=== PATIENT | male | born 1940 | race Caucasian/White ===

== ENCOUNTER 2023-09-13 10:49 | Outpatient (RCR) | payer OTHER, SELFPAY | END 2023-09-13 23:59 | disposition home or self-care (01) | LOC: RPT 10:49 | PROVIDERS: ATTENDING PHYSICIAN Physical Medicine & Rehabilitation; PRIMARYCARE PHYSICIAN Internal Medicine | DX: I69.354 Hemiplegia and hemiparesis following cerebral infarction affecting left non-dominant side (principal); R26.89 Other abnormalities of gait and mobility | CPT/HCPCS: 97014; 97110; 97112; 97116; 97140; 97530; 97535 ==

== ENCOUNTER 2023-10-11 10:18 | Outpatient (RCR) | payer OTHER, SELFPAY | END 2023-10-11 23:59 | disposition home or self-care (01) | LOC: RPT 10:18 | PROVIDERS: ATTENDING PHYSICIAN Physical Medicine & Rehabilitation; PRIMARYCARE PHYSICIAN Internal Medicine | DX: I69.354 Hemiplegia and hemiparesis following cerebral infarction affecting left non-dominant side (principal); Z74.09 Other reduced mobility; Z73.6 Limitation of activities due to disability; R26.89 Other abnormalities of gait and mobility | CPT/HCPCS: 97010; 97014; 97110; 97112; 97116; 97530; 97535 ==

== ENCOUNTER → 2024-02-07 09:34 | Outpatient (REF) | payer MEDICARE, SELFPAY ==
[2024-02-07 10:11] LABS: % Basophils 0.5 % (0-2); % Eosinophils 0.7 % (0-6); % Immature Granulocytes 0.2 % (0-0.5); % Lymphocytes 11.6 % (20.5-51.1); % Monocytes 8.9 % (1.7-9.3); % Neutrophils 78.1 % (42.2-75.2); Absolute Eosinophils 0.1 10^3/uL (0-0.7); Absolute Monocytes 0.8 10^3/uL (0.1-0.6); Absolute Neutrophils 6.9 10^3/uL (1.4-6.5); Hematocrit 41.6 % (39.0-52.0); Hemoglobin 13.3 g/dL (13.0-18.0); Mean Corpuscular Hgb 25.3 pg (27.0-31.0); Mean Corpuscular Volume 79.2 fL (80.0-94.0); Mean Platelet Volume 10.7 fL (7.4-10.4); Nucleated Red Blood Cells % 0 % (-); Platelet Count 155 10^3/uL (130-400); Red Blood Cell Count 5.25 10^6/uL (4.70-6.10); Red Cell Dist. Width 14.2 % (11.5-14.5); White Blood Cell Count 8.8 10^3/uL (4.8-10.8)
[2024-02-07 11:20] LABS: ALT (SGPT) 11 U/L (0-50); AST (SGOT) 20 U/L (17-59); Albumin 4.1 g/dl (3.5-5.0); Alkaline Phosphatase 76 U/L (38-126); Blood Urea Nitrogen 19 mg/dl (9-20); Calcium 9.5 mg/dl (8.4-10.2); Carbon Dioxide 30 mmol/L (22-30); Chloride 99 mmol/L (98-107); Glucose 77 mg/dl (70-99); HDL Cholesterol 42 mg/dl; LDL Cholesterol, Calculated 55 mg/dl; Potassium 4.6 mmol/L (3.5-5.1); Sodium 138 mmol/L (135-145); Total Bilirubin 1.2 mg/dl (0.2-1.3); Total Cholesterol 111 mg/dl (50-199); Total Protein 6.9 g/dl (6.3-8.2); Triglyceride 73 mg/dl (10-149); Very Low Density Lipoprotein 14 mg/dl (0-30); eGFR > 60.00
[2024-02-07 11:50] LABS: TSH Reflex To Free T4 0.75 uIU/ml (0.47-4.68)
[2024-02-07 12:51] LABS: Glycohemoglobin (HgbA1c) 5.8 % (4.0-5.6)
== END ==
LOC: REG 09:34
PROVIDERS: ATTENDING PHYSICIAN Internal Medicine
DX: I10 Essential (primary) hypertension (principal); E11.9 Type 2 diabetes mellitus without complications; I25.10 Atherosclerotic heart disease of native coronary artery without angina pectoris; E78.00 Pure hypercholesterolemia, unspecified; R68.89 Other general symptoms and signs
CPT/HCPCS: 36415; 80053; 80061; 83036; 84443; 85025

== ENCOUNTER 2024-02-09 02:39 | Inpatient (IN) | payer MEDICARE, SELFPAY ==
[2024-02-08 21:38] VITALS: BP 131/63; BMI 22.9
[2024-02-08 21:56] LABS: % Basophils 0.2 % (0-2); % Eosinophils 0.1 % (0-6); % Immature Granulocytes 0.4 % (0-0.5); % Lymphocytes 8.4 % (20.5-51.1); % Neutrophils 81.9 % (42.2-75.2); Absolute Immature Granulocytes 0.1 10^3/uL (0-0.05); Absolute Monocytes 1.1 10^3/uL (0.1-0.6); Absolute Neutrophils 9.9 10^3/uL (1.4-6.5); Hematocrit 39.1 % (39.0-52.0); Hemoglobin 13.2 g/dL (13.0-18.0); Mean Corp Hgb Conc. 33.8 g/dL (33.0-37.0); Mean Corpuscular Hgb 25.8 pg (27.0-31.0); Mean Corpuscular Volume 76.4 fL (80.0-94.0); Mean Platelet Volume 10.8 fL (7.4-10.4); Nucleated Red Blood Cells % 0 % (-); Platelet Count 167 10^3/uL (130-400); Red Blood Cell Count 5.12 10^6/uL (4.70-6.10); Red Cell Dist. Width 13.9 % (11.5-14.5); White Blood Cell Count 12.1 10^3/uL (4.8-10.8)
[2024-02-08 22:00] VITALS: BP 118/56
[2024-02-08 22:58] LABS: Lipase 37 U/L (23-300)
[2024-02-08 23:00] VITALS: BP 118/64
--- NOTE | 2024-02-08 23:43 | ED.GENMED ---
History of Present Illness
General
Chief Complaint: Abdominal Symptoms
Source: patient, ambulance crew and previous hospital records (Hospitalization 1 year ago for acute stroke)
Exam Limitations: none
Time Seen by Provider: 02/08/24 23:21
Nursing documentation reviewed up to this point in time: agreed with except (Patient called 911 due to shortness of breath and cough. He also notes intermittent left inguinal pain related to chronic inguinal hernia.)
History of Present Illness
History of Present Illness:
This is an 83-year-old gentleman who resides at home independently. 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 He has history of COPD chronically maintained on Stiolto and as needed albuterol.
Remote history of smoking, history of hypertension, hyperlipidemia, CAD.
During hospitalization 1 year ago for stroke he was found to have paroxysmal atrial fibrillation, started on Eliquis at that time.
He complains of several day history of cough that has worsened over the past few days especially today with moderate shortness of breath without relief from albuterol inhaler prompting call to 911.
Upon EMS arrival room air pulse ox reportedly 84%. Placed on nasal cannula oxygen and given DuoNeb nebulizer en route with improvement.
Patient does not utilize oxygen at home and reports no prior history of hypoxia.
He has had intermittent chills but notes somewhat chronic intermittent chills which he attributes to a 40 pound weight loss over the past year since suffering a stroke.
He also notes chronic left inguinal hernia that 'comes and goes.' This inguinal hernia is intermittently painful and was somewhat painful this afternoon/evening but pain has resolved since arrival to the ED.
He denies abdominal pain, no nausea or vomiting, no dysuria no urgency and or hematuria, no difficulty moving his bowels.
There has been no recent change in medications.
He has been compliant with medications including twice daily Eliquis.
He denies falls or injuries.
Past History
Past History
ED Past Medical History: Arrthythmia (Paroxysmal atrial fibrillation), COPD, CVA (January 2023), GERD, HTN, Hypercholesterolemia and PA
ED Past Surgical History: Cardiac and Other
Social History
Tobacco: Former smoker
Alcohol: None
Drug: None
Personal:
Living: alone
Employment: Retired
Family History
Family History: Other (Noncontributory)
Phy Exam
Physical Exam
Physical Exam:
GENERAL: 83-year-old gentleman appears his stated age, awake and alert, pleasant, appears in mild distress with mild resting tachypnea but able to speak in full sentences. Intermittent moist cough is noted. He is febrile, oral temperature 100.5 �F.
EYE: anicteric
NECK: Supple, nontender, no meningismus, no significant adenopathy.
ENT: posterior pharynx is clear, oral mucosa is moist. TM clear b/l, nares patent.
CARDIAC: Regular rhythm mildly tachycardic. No murmur.
LUNGS: Mild resting tachypnea with intermittent moist cough. Mildly decreased breath sounds throughout with scant rales right base.
ABDOMEN: Soft, nondistended, without focal tenderness, no r/g, normoactive BS. There is minimal fullness left inguinal region with left inguinal hernia defect without palpable mass, no palpable hernia and nontender. No testicular tenderness
bilaterally.
NEUROLOGICAL: Alert and oriented x3, chronic left hemiparesis. Left upper extremity with mild flexion deformity at wrist.
SKIN: Hot to touch and dry, normal color, skin intact. No rash.
MUSCULOSKELETAL: No C/C/E. peripheral pulses are full and equal b/l. No palpable tenderness.
PSYCH: Normal and appropriate interaction.
Course
Orders/Labs/Results
Orders:
Orders
02/08/24 21:43
IV Insert/Care/Rem.- Treatment PRN
02/08/24 21:47
Complete Blood Count/With Diff Urgent
02/08/24 21:48
EKG [Electrocardiogram (*1)] Urgent
Reason for Study: Tachycardia
EKG- Treatment ONCE
02/08/24 22:29
Lipase Urgent
02/08/24 23:33
Cardiac Monitoring- Treatment ONCE
O2 Therapy [RESP] Urgent
Titrate/Wean O2 to maintain O2 sat greater than (%): 93
Special Instructions: TO MAINTAIN CONTINUOUS O2 SATS > OR = 93%
Pulse Ox/cont/shift [RESP] Urgent
Quantity: 1
Special Instructions: CONTINUOUS
02/08/24 23:39
Comprehensive Metabolic Panel Urgent
Lactic Acid Q4H
Comment: ON ICE, CANCEL 2ND ORDER IF FIRST LACTIC ACID LEVEL <2
Blood Culture Q30M
SILVA Source: Blood/Venous
Specimen Description:
Comment: FROM 2 SEPARATE SITES
02/08/24 23:40
COVID-19 Antigen Urgent
Source: Nasal Swab
Acetaminophen [Tylenol] 1,000 mg PO NOW STA
02/08/24 23:41
Urinalysis Reflex To Culture Urgent
02/08/24 23:42
0.9% Sodium Chloride 1000 ml [Nss] 2,000 ml IV BOLUS
02/09/24 00:00
CR Chest - 2 Views Urgent
Reason For Exam: COUGH, FEVER, HYPOXIA
02/09/24 00:15
Blood Culture Q30M
SILVA Source: Blood/Venous
Specimen Description:
Comment: FROM 2 SEPARATE SITES
02/09/24 00:29
CefTRIAXone [Rocephin] 1,000 mg IV NOW STA
Doxycycline [Vibramycin] 100 mg PO NOW STA
02/09/24 03:45
Lactic Acid Q4H
Comment: ON ICE, CANCEL 2ND ORDER IF FIRST LACTIC ACID LEVEL <2
Abnormal Lab Results
02/08/24 02/08/24
21:47 23:39
WBC 12.1 H 10^3/uL
(4.8-10.8)
MCV 76.4 L fL
(80.0-94.0)
MCH 25.8 L pg
(27.0-31.0)
MPV 10.8 H fL
(7.4-10.4)
Abs Immat Gran (auto) 0.1 H 10^3/uL
(0-0.05)
Absolute Neuts (auto) 9.9 H 10^3/uL
(1.4-6.5)
Absolute Lymphs (auto) 1.0 L 10^3/uL
(1.2-3.4)
Absolute Monos (auto) 1.1 H 10^3/uL
(0.1-0.6)
Neutrophils % 81.9 H %
(42.2-75.2)
Lymphocytes % 8.4 L %
(20.5-51.1)
Sodium 133 L mmol/L
(135-145)
Creatinine 0.6 L mg/dL
(0.7-1.3)
Glucose 135 H mg/dl
(70-99)
02/08/24 21:47
02/08/24 23:39
Vital Signs
Temp: 100.5 F
Initial and Last Documented VS:
Initial Vital Signs
Temp Pulse Resp BP Pulse Ox
99.4 F 115 32 131/63 91
02/08/24 21:38 02/08/24 21:38 02/08/24 21:38 02/08/24 21:38 02/08/24 21:38
Last Documented Vital Signs
Temp Pulse Resp BP Pulse Ox
100.5 F H 106 20 107/61 95
02/08/24 23:55 02/09/24 00:00 02/09/24 00:00 02/09/24 00:00 02/09/24 00:22
MDM/Problems Addressed
Differential Diagnosis Includes:
Several day history of cough, progressive shortness of breath and found to be febrile. Concern for pneumonia, COVID-19, exacerbation of COPD.
He has chronic left inguinal hernia deficit with intermittent pain/palpable hernia that spontaneously reduces and is currently reduced and nontender. I suspect hernia discomfort exacerbation more acutely due to current cough/URI.
With acute fever/cough, CHF is much less likely. No prior history of CHF/cardiomyopathy.
power checker and EKG shows sinus tachycardia, likely in response to acute febrile illness. There is no evidence of atrial fibrillation.
He has been compliant with twice daily Eliquis thus thromboembolism is unlikely.
Will give Tylenol for fever. Will check lactic acid, blood cultures, chest x-ray.
Will initiate IV fluids.
Due to acute hypoxia requiring supplemental oxygen, patient will require acute hospitalization.
Chronic conditions affecting care: HTN, Arrhythmia, COPD and Other (Chronic left inguinal hernia)
Acute Exacerbation and/or Progression of Chronic Illness: COPD
*Radiology
Radiology exam reviewed: preliminary read by ED provider (Chest x-ray shows chronic right lower lobe atelectasis/volume loss with a new right lower lobe infiltrate compared to previous film 2020)
*Pulse Oximetry
Patient hypoxic: yes
*EKG
Interpreted by ED Provider?: Yes
Interpretation: abnormal
Comparison EKG: changes noted (Sinus tachycardia has replaced atrial fibrillation noted on previous EKG January 2023)
Rate: tachycardiac
Rhythm: sinus
[place]: left axis deviation
QRS Pattern: right bundle branch block
Ischemia: non-specific ST changes
*School Psych[employer]rist Interpretation
Rate: tachycardiac
Interpretation: abnormal
Rhythm: sinus
*Critical Care Note
Total Time (30-74mins, 75-104mins- exclusive of procedures): Not Applicable
Update Note
Update Note:
02/09/2024 0033 AM
Chest x-ray shows chronic appearing atelectasis right lower lobe I suspect from previous lung surgery but notes a new right lower lobe infiltrate.
Will initiate Rocephin, doxycycline for coverage of community-acquired pneumonia.
Will continue supplemental oxygen, nebulizer treatments.
Will admit to hospitalist service.
ED Attending Note
-
Portions of this chart may have been created with voice recognition software.� Occasional wrong word or��sound alike� substitutions may have occurred due to the inherent limitations of voice recognition software.
Discharge Plan
Departure
Patient Disposition: Admit
Date of Disposition: 02/09/24
Time of Disposition: 00:32
Admit to doctor: Mckay
Presentation/result/management discussed w/ accepting MD/DO: Hospitalist
Condition: Fair
Discharge Problem:
Community acquired pneumonia, Acute hypoxemic respiratory failure, Fever rule out sepsis, Reducible left inguinal hernia
Prescriptions:
No Action
rosuvastatin [Crestor] 40 mg Tablet
40 mg PO DAILY
Rx Instructions:
pt states he takes at bedtime
omeprazole 40 mg Capsule,Delayed Release(Dr/Ec)
40 mg PO DAILY
Patient Comments:
pt states he takes in morning
Rx Instructions:
pt states he takes in morning
Stiolto Respimat 2.5-2.5 mcg/actuation Mist
2 puff INHALATION DAILY
Eliquis 5 mg Tablet
5 mg PO BID Qty: 0 0RF
lidocaine 4 % Adhesive Patch,Medicated
1 patch topical DAILY Qty: 30 0RF
polyethylene glycol 3350 [HealthyLax] 17 gram Powder In Packet
17 g PO DAILYPRN PRN (Reason: constipation) Qty: 30 0RF
metoprolol succinate 50 mg Tablet Extended Release 24 Hr
50 mg PO DAILY Qty: 30 0RF
prochlorperazine maleate 5 mg Tablet
5 mg PO Q6HPRN PRN (Reason: nausea) Qty: 30 0RF
cyanocobalamin (vitamin B-12) 1,000 mcg Tablet
1,000 mcg PO DAILY Qty: 30 0RF
acetaminophen [Pain Relief ES (acetaminophen)] 500 mg Tablet
1,000 mg PO Q8HPRN PRN (Reason: mild pain) Qty: 100 0RF
trazodone 100 mg Tablet
100 mg PO HS Qty: 30 0RF
Saline Nasal 0.65 % Aerosol,[place]
1 spray intranasal QID Qty: 88 0RF
escitalopram oxalate 5 mg Tablet
5 mg PO DAILY Qty: 30 0RF
multivitamin with folic acid [Tab-A-Zach] 400 mcg Tablet
1 tab PO DAILY Qty: 30 0RF
Referrals:
UNKNOWN - PT DOES,NOT KNOW [Family Provider] -
Interventions
Interventions:
*Risk Screen - Suicide Last Done: 02/08/24 21:38
*General Assessment Last Done: 02/08/24 21:38
*Neglect/Abuse Screening Last Done: 02/08/24 21:38
ED- Fall Risk Assessment Last Done: 02/09/24 00:25
*ED COVID-19 Vaccine History Last Done: 02/08/24 21:38
ZE-Hyjpni-Xakmbqiyff Assessment Last Done: 02/09/24 00:22
Discharge Date and Time
Print Language: SETSWANA
[2024-02-08] MEDS: NSS 2000 IV (23:54)
[2024-02-08] MEDS: TYLENOL 1000 MG PO (23:54)
[2024-02-09] VITALS (11 sets, daily range): BP systolic 106–166; BP diastolic 49–96; PULSE 93; O2SAT 99; BMI 22.8
[2024-02-09 00:09] LABS: Lactic Acid 1.1 mmol/L (0.7-2.0)
[2024-02-09 00:20] LABS: ALT (SGPT) 14 U/L (0-50); AST (SGOT) 28 U/L (17-59); Albumin 3.7 g/dl (3.5-5.0); Alkaline Phosphatase 75 U/L (38-126); Blood Urea Nitrogen 20 mg/dl (9-20); Carbon Dioxide 25 mmol/L (22-30); Chloride 99 mmol/L (98-107); Estimated Creatinine Clearance 99 ml/min; Glucose 135 mg/dl (70-99); Potassium 4.1 mmol/L (3.5-5.1); Sodium 133 mmol/L (135-145); Total Bilirubin 0.9 mg/dl (0.2-1.3); Total Protein 6.5 g/dl (6.3-8.2); eGFR > 60.00
--- NOTE | 2024-02-09 00:54 | HPS.HSE ---
Family Physician
-
Family Physician: NOT KNOW UNKNOWN - PT DOES
Chief Complaint
-
cough and shortness of breath
History of Present Illness
Mr. Rodo Salazar is a 83 yo man with hx CVA 1 year ago with residual left hemiparesis, COPD, prior tobacco us, HTN, HLD, CAD, paroxysmal afib on Eliquis presents to the ER with cough and worsening shortness of breath.
Patient states symptoms started 2-3 days ago. He had an increase in cough, cough is non-productive. No fevers/chills. No chest pain. + fatigue. No nausea/vomiting/diarrhea. He used albuterol once today with mild relief in symptoms. Currently
on 2L O2 in ER, he is not on oxygen at home.
Patient also states he has felt his hernia more with coughing (known inguinal hernia). Not painful. Currently he does not feel it.
Medical History
Past Medical History
Past Medical History: Reports Other
Additional Past Medical History:
Essential Hypertension
Dyslipidemia
Paroxysmal Atrial Fibrillation
CVA with residual left hemiparesis
COPD
coronary artery disease
Social history: Lives independently at home, denies smoking or alcohol use.
Family history: Reviewed and noncontributory.
Past Surgical History: Reports Other
Social History
Tobacco: Former Smoker
Family History
Family History: Not pertinent and Other
Allergies / Home Medications
Allergies reflects when Allergies were last updated in [employer].
Home Medications with original date entered in [employer]
Allergy/Medication List:
Allergies
Allergy/AdvReac Type Severity Reaction Status Date / Time
penicillin G Allergy childhood-i Verified 02/08/24 21:42
tchy
Penicillins Allergy Unknown-chi Verified 02/08/24 21:42
ldhood-itcy
Home Medications
omeprazole 40 mg capsule,delayed release 40 mg PO DAILY Gastrointestinal Issue 01/15/23
rosuvastatin 40 mg tablet (Crestor) 40 mg PO DAILY High Cholesterol 01/15/23
tiotropium 2.5 mcg-olodaterol 2.5 mcg/actuation mist for inhalation (Stiolto Respimat) 2 puff inhalation DAILY Lung/Breathing Issues 01/15/23
apixaban 5 mg tablet (Eliquis) 5 mg PO BID #0 tabs 01/20/23
cyanocobalamin (vitamin B-12) 1,000 mcg tablet 1,000 mcg PO DAILY #30 tabs 02/09/23
multivitamin with folic acid 400 mcg tablet (Tab-A-Zach) 1 tab PO DAILY #30 tabs 02/09/23
trazodone 100 mg tablet 100 mg PO HS #30 tabs 02/09/23
Pepcid 20 mg PO DAILY 02/09/24
Toprol XL 25 mg PO DAILY 02/09/24
losartan 25 mg PO DAILY 02/09/24
Review of Systems
-
History Source: Patient
A 12 point ROS was completed and negative except as noted: Yes
Physical Exam
Vital Signs
Vital Signs
Temp Pulse Resp BP Pulse Ox
100.5 F H 106 20 107/61 95
02/08/24 23:55 02/09/24 00:00 02/09/24 00:00 02/09/24 00:00 02/09/24 00:22
Physical Exam
General: Other (no apparent distress, appears fatigued )
HEENT: PERRLA
Respiratory: Rhonchi (faint rhonchi); No Wheezes
Cardiac: Regular Rhythm and Carotid Pulses
GI: Soft and Non Tender
Musculoskeletal: No Edema
Skin: Warm and Dry; No Rash
Neuro: AO x 3 and Other (chronic left hemiparesis)
Psych: Calm
Laboratory Results
-
02/08/24 21:47
02/08/24 23:39
Laboratory Results
Lactic Acid 1.1 mmol/L (0.7-2.0) 02/08/24 23:39
Total Bilirubin 0.9 mg/dl (0.2-1.3) 02/08/24 23:39
AST 28 U/L (17-59) 02/08/24 23:39
ALT 14 U/L (0-50) 02/08/24 23:39
Alkaline Phosphatase 75 U/L (38-126) 02/08/24 23:39
Lipase 37 U/L (23-300) 02/08/24 22:29
Data Reviewed
-
Diagnostic Radiology: Report Reviewed by me
Lab Data: Labs Reviewed by me
Impression/Plan
-
Mr. Rodo Salazar is a 83 yo man with hx CVA 1 year ago with residual left hemiparesis, COPD, prior tobacco use, HTN, HLD, CAD, paroxysmal afib on Eliquis presents to the ER with cough and worsening shortness of breath.
Triage VS: T 99.4, P 115, RR 32, BP 131/63, SpO2 91%
LABS: WBC 12.1, Hg 13.2, PLT 167, Na 133, K+ 4.1, CO2 25, Cr 0.6, Glucose 135, Lactate 1.1, liver enzymes WNL
CXR: RLL Pneumonia
EKG: sinus tach @ 110's, PVC, RBBB
MAR: Ceftriaxone/Doxycycline
Sepsis 2/2 RLL Pneumonia
Hypoxic Respiratory Insufficiency
-admit to telemetry
-continue ceftriaxone/doxy
-sputum culture if able to obtain
-mucinex, acapella
-PT/OT
Paroxysmal Atrial Fibrillation
-YACHT HAND Metoprolol
-YACHT HAND Eliquis
Essential HTN
-hold YACHT HAND Losartan for now, monitor BP and resume if hypertensive
Hx CVA
-chronic left-sided hemiparesis
-YACHT HAND eliquis as above
-PT/OT
COPD
-currently do not hear wheezing on exam
-YACHT HAND Stiolto
-standing albuterol
Hx Tobacco Use
Hyperlipidemia
-YACHT HAND Statin
DVT PPx Eliquis
FULL CODE
76 minutes spent on patient evaluation, medical decision making, coordination of care
[2024-02-09] MEDS: VIBRAMYCIN 100 MG PO ×3 (01:07→20:21)
[2024-02-09] MEDS: ROCEPHIN 1000 MG IV (01:10)
[2024-02-09 02:00] LABS: COVID-19 Antigen Negative (Negative)
[2024-02-09 02:44] LABS: Urine Albumin 1+ (Neg - Trace); Urine Bilirubin Negative (Negative); Urine Character Slightly Cloudy (Clear); Urine Color Amber; Urine Glucose Negative (Negative); Urine Ketone 3+ (Negative); Urine Leukocyte Negative (Negative); Urine Nitrite Negative (Negative); Urine Occult Blood 3+ (Negative); Urine Urobilinogen Negative (Neg - 1+)
[2024-02-09 02:53] LABS: Urine Amorphous Seen; Urine Granular Cast >15 /LPF (0); Urine Mucus Moderate; Urine Squamous Cell >30 /LPF (Few); Urine Urothelial Cell >30 /LPF (FEW)
[2024-02-09 02:57] LABS: Urine Bacteria Many (Negative)
[2024-02-09 03:05] LABS: Urine Red Blood Cell >100 /HPF (0-2)
--- NOTE | 2024-02-09 03:15 | PTCARENOTE ---
Received patient from ED via stretcher. Pt AAOX3. KOI. NSR /PVCs on monitor worker. Pox: 95% RA. Patient denies pain. Call landin within reach. Plan of care ongoing.
[2024-02-09] MEDS: NSS 1000 IV (03:19)
[2024-02-09] MEDS: SPIRIVA RESPIMAT 2.5 MCG 2 PUFF INH (07:42)
[2024-02-09] MEDS: VENTOLIN NEBULES 2.5 MG INH ×4 (07:42→19:52)
[2024-02-09] MEDS: STRIVERDI RESPIMAT 2 PUFF INH (07:42)
[2024-02-09 07:54] LABS: % Basophils 0.2 % (0-2); % Eosinophils 0.3 % (0-6); % Immature Granulocytes 0.7 % (0-0.5); % Lymphocytes 8.1 % (20.5-51.1); % Monocytes 11.5 % (1.7-9.3); % Neutrophils 79.2 % (42.2-75.2); Absolute Immature Granulocytes 0.1 10^3/uL (0-0.05); Absolute Lymphocytes 0.8 10^3/uL (1.2-3.4); Absolute Monocytes 1.1 10^3/uL (0.1-0.6); Absolute Neutrophils 7.8 10^3/uL (1.4-6.5); Hematocrit 37.5 % (39.0-52.0); Hemoglobin 12.1 g/dL (13.0-18.0); Mean Corp Hgb Conc. 32.3 g/dL (33.0-37.0); Mean Corpuscular Hgb 25.5 pg (27.0-31.0); Mean Corpuscular Volume 78.9 fL (80.0-94.0); Mean Platelet Volume 10.6 fL (7.4-10.4); Nucleated Red Blood Cells % 0 % (-); Platelet Count 151 10^3/uL (130-400); Red Blood Cell Count 4.75 10^6/uL (4.70-6.10); White Blood Cell Count 9.8 10^3/uL (4.8-10.8)
[2024-02-09 08:08] LABS: Blood Urea Nitrogen 16 mg/dl (9-20); Calcium 8.6 mg/dl (8.4-10.2); Carbon Dioxide 26 mmol/L (22-30); Chloride 103 mmol/L (98-107); Estimated Creatinine Clearance 84 ml/min; Glucose 110 mg/dl (70-99); Magnesium 1.7 mg/dl (1.6-2.3); Potassium 3.6 mmol/L (3.5-5.1); Sodium 138 mmol/L (135-145); eGFR > 60.00
--- NOTE | 2024-02-09 08:20 | W.PN.GENERIC ---
Assessment / Plan
-
Acute hypoxic respiratory failure secondary to CAP
- on antibiotics with ctx and doxy to complete 5day course
- covid -, sputum cx pending if able to expectorate
- wean o2 as tolerated
- maintain spo2 >90%
- provide incentive spirometer/acapella
- pt/ot consulted, likely as poor ampac and may need snf on dc
- - allow for early mobilization with oob to chair as much as possible to reduce deconditioning
Sepsis without septic shock likely source pulmonary
- bcx pending
- iv antibiotics
- follow up on sputum culture
Asymptomatic bacteriuria
- no treatment at this time
COPD without evidence of acute exacerbation
- continue MDI's
PAFib
- continue bb and ac
CVA without reported residual deficits
- on eliquis and HI statin
GERD
- continue ppi and n9ksczpty
B12 Def
- continue b12 supplementation
HTN
- hold ARB for now, if becoming hypertensive can resume
DVT ppx
- eliquis bid
Pending: Wean o2, IVAbx follow up culture data, PT/OT
Diet: Regular house/Cholesterol lowering
Code status: Full code
Dispo: [facility]
Physician Progress Note
Subjective
seen and examined
no new complaints.
no acute overnight events.
states that he still feels weak and sob. continues to have a dry cough.
symptoms began 3day prior to presentation with fatigue, dry cough and states he had a fever on arrival to the ED.
sick contact a ginny of his.
he lives alone. stopped smoking in 1983. follows with pulmonary and has not required o2 at home.
Objective
Vital Signs
Temp Pulse Resp BP Pulse Ox
97.9 F 92 18 119/62 99
02/09/24 02:52 02/09/24 07:47 02/09/24 07:47 02/09/24 02:52 02/09/24 07:47
Lab Results
02/09/24 07:36
02/09/24 07:36
Imaging
CXR: RLL infilitative process without pulmonary edema and cardiomegaly
EKG: ST @ 116, with normal intervals, RBBB, Bifasciluar block, TWI in leads V1 and V2
Physical exam
General: NAD, no respiratory distress, appears older then stated age and frail
HENT: atraumatic, scleral anicteric, no rhinorrhea noted, eomi
Neck: Supple without JVD
Heart: RRR, s1/s2
Lungs: RLL noted rhonchi, Left lung lobes clear
Abd: Soft, NT, ND, BS+
Extremities: Without edema, able to move extremities spontanously
Skin: Dry
Neuro: AAOx3, without focal deficits on exam
Psych: normal
[2024-02-09] MEDS: MUCINEX 600 MG PO ×2 (08:33→20:21)
[2024-02-09] MEDS: TOPROL XL 25 MG PO (08:33)
[2024-02-09] MEDS: ELIQUIS 5 MG PO ×2 (08:33→20:21)
[2024-02-09] MEDS: PROTONIX 40 MG PO (08:34)
--- NOTE | 2024-02-09 09:05 | W.PN.HOSP.TC ---
Today's Communication/Plan
-
signed
Assessment / Plan
Assessment / Plan
Acute hypoxic respiratory failure secondary to CAP
- on antibiotics with ctx and doxy to complete 5day course
- covid -, sputum cx pending if able to expectorate
- wean o2 as tolerated
- maintain spo2 >90%
- provide incentive spirometer/acapella
- pt/ot consulted, likely as poor ampac and may need snf on dc
- - allow for early mobilization with oob to chair as much as possible to reduce deconditioning
Sepsis without septic shock likely source pulmonary
- bcx pending
- iv antibiotics
- follow up on sputum culture
Asymptomatic bacteriuria
- no treatment at this time
COPD without evidence of acute exacerbation
- continue MDI's
PAFib
- continue bb and ac
Inguinal hernia
- without evidence of incarceration/strangulation, reducible
- outpatient general surgery follow up
CVA without reported residual deficits
- on eliquis and HI statin
GERD
- continue ppi and [id number]
B12 Def
- continue b12 supplementation
HTN
- hold ARB for now, if becoming hypertensive can resume
DVT ppx
- eliquis bid
Pending: Wean o2, IVAbx follow up culture data, PT/OT
Diet: Regular house/Cholesterol lowering
Code status: Full code
Dispo: [facility]
Anticipated Discharge: 24 - 48 hours
Subjective/Interval History
-
Date of Service: February 09, 2024
states that he still feels weak and sob. continues to have a dry cough.
symptoms began 3day prior to presentation with fatigue, dry cough and states he had a fever on arrival to the ED.
sick contact a ginny of his.
he lives alone. stopped smoking in 1983. follows with pulmonary and has not required o2 at home.
Objective Data
-
Labs:
Laboratory Results
02/08/24 02/08/24 02/08/24
21:47 22:29 23:39
WBC 12.1 H
Hgb 13.2
Hct 39.1
Plt Count 167
Sodium Cancelled Cancelled 133 L
Potassium Cancelled Cancelled 4.1
Chloride Cancelled Cancelled 99
Carbon Dioxide Cancelled Cancelled 25
BUN Cancelled Cancelled 20
Creatinine Cancelled Cancelled 0.6 L
Glucose Cancelled Cancelled 135 H
Calcium Cancelled Cancelled 9.0
Total Bilirubin Cancelled Cancelled 0.9
AST Cancelled Cancelled 28
ALT Cancelled Cancelled 14
Alkaline Phosphatase Cancelled Cancelled 75
02/09/24
07:36
WBC 9.8
Hgb 12.1 L
Hct 37.5 L
Plt Count 151
Sodium 138
Potassium 3.6
Chloride 103
Carbon Dioxide 26
BUN 16
Creatinine 0.7
Glucose 110 H
Calcium 8.6
Total Bilirubin
AST
ALT
Alkaline Phosphatase
Vital Signs:
Vital Signs
Temp Pulse Resp BP Pulse Ox
98 F 84 18 166/96 99
02/09/24 07:25 02/09/24 08:33 02/09/24 07:47 02/09/24 08:33 02/09/24 07:47
I&O
02/08/24 02/09/24 02/10/24
06:59 06:59 06:59
Output Total 180 / 180
Balance -180 / -180
Imaging
CXR: RLL infilitative process without pulmonary edema and cardiomegaly
EKG: ST @ 116, with normal intervals, RBBB, Bifasciluar block, TWI in leads V1 and V2
Review of Systems
-
History Source: Patient
All other systems: Reviewed and negative
Constitutional: Reports Fatigue and Weakness
Respiratory: Reports Cough (dry)
Physical Exam
-
General: Other (General: NAD, no respiratory distress, appears older then stated age and frail HENT: atraumatic, scleral anicteric, no rhinorrhea noted, eomi Neck: Supple without JVD Heart: RRR, s1/s2 Lungs: RLL noted rhonchi, Left lung lobes clear
Abd: Soft, NT, ND, BS+ Extremities: Without edema, able to move ext)
Data Reviewed
-
Diagnostic Radiology: Image personally visualized and interpreted, Report Reviewed by me and Discussed with Patient
Medical Tests (Nuc Med, Echo etc): Image personally visualized and interpreted and Discussed with Patient
Labs: Labs Reviewed by me and Discussed with Patient
Old Records: Reviewed
[2024-02-09] MEDS: CRESTOR 40 MG PO (18:01)
[2024-02-09] MEDS: PEPCID 20 MG PO (20:21)
[2024-02-09] MEDS: DESYREL 100 MG PO (21:21)
[2024-02-10] MEDS: FLUSH (NSS) 1 FLUSH IV (00:31)
[2024-02-10] MEDS: ROCEPHIN 1000 MG IV (00:31)
[2024-02-10] MEDS: STERILE WATER FOR INJECTION 10 ML IV (00:31)
[2024-02-10] MEDS: TYLENOL 650 MG PO ×2 (03:32→19:45)
[2024-02-10 03:37] VITALS: BP 121/68
[2024-02-10 07:20] VITALS: BP 116/68
[2024-02-10] MEDS: STRIVERDI RESPIMAT 2 PUFF INH (07:29)
[2024-02-10] MEDS: SPIRIVA RESPIMAT 2.5 MCG 2 PUFF INH (07:29)
[2024-02-10] MEDS: VENTOLIN NEBULES 2.5 MG INH ×4 (07:29→19:38)
[2024-02-10] MEDS: MUCINEX 600 MG PO ×2 (08:32→19:45)
[2024-02-10] MEDS: PROTONIX 40 MG PO (08:32)
[2024-02-10] MEDS: ELIQUIS 5 MG PO ×2 (08:33→19:45)
[2024-02-10] MEDS: VIBRAMYCIN 100 MG PO ×2 (08:33→19:45)
[2024-02-10] MEDS: TOPROL XL 25 MG PO (08:33)
[2024-02-10 11:20] VITALS: BP 132/73
--- NOTE | 2024-02-10 14:10 | PTOTSP ---
Speech Therapy Assessment
Oral/pharyngeal swallow deemed within functional limits without overt signs of aspiration or pharyngeal stasis with limited number of trials accepted.
Recommend
1. Continue regular solids and Thin Liquids
2. Upright with all intake.
3. Meds with liquid as tolerated.
No skilled ST indicated
--- NOTE | 2024-02-10 14:21 | CM ---
Rodo lives alone in a one story home with a hospital bed. He has a daily caregiver for 7 hrs/day to assist with bathing, dressing, and upkeep of basic homemaking. He typically ambulates with a quad cane, but he can use his wheelchair within his
home, as well.
SNF is being recommended, however Rodo is not fond of this idea. He has a neighbor who visits regularly.
CM will follow for discharge planning needs; SNF vs. home
[ End ]
--- NOTE | 2024-02-10 15:17 | W.PN.HOSP.TC ---
Today's Communication/Plan
-
Continue antibiotics.
Monitor temperature curve
Would consider to transition to oral antibiotics if afebrile for over 24 hours.
Wean off oxygen as tolerates.
Increase activity.
Incentive spirometry.
Assessment / Plan
Assessment / Plan
Acute hypoxic respiratory failure secondary to CAP
- on antibiotics with ctx and doxy to complete 5day course
- covid -, sputum cx pending if able to expectorate
- wean o2 as tolerated
- maintain spo2 >90%
- provide incentive spirometer/acapella
- pt/ot consulted, likely as poor ampa and may need snf on dc
- - allow for early mobilization with oob to chair as much as possible to reduce deconditioning
-Patient with prior history of CVA neurologic sequela. Speech and swallow relation appreciated with no evidence of aspiration.
Sepsis without septic shock likely source pulmonary
- bcx pending
- iv antibiotics
- follow up on sputum culture
Asymptomatic bacteriuria
- no treatment at this time
COPD without evidence of acute exacerbation
- continue MDI's
PAFib
- continue bb and ac
Inguinal hernia
- without evidence of incarceration/strangulation, reducible
- outpatient general surgery follow up
CVA without reported residual deficits
- on eliquis and HI statin
GERD
- continue ppi and [id number]
B12 Def
- continue b12 supplementation
HTN
- hold ARB for now, if becoming hypertensive can resume
DVT ppx
- eliquis bid
Pending: Wean o2, IVAbx follow up culture data, PT/OT
Diet: Regular house/Cholesterol lowering
Code status: Full code
Dispo: [facility]
Anticipated Discharge: 24 - 48 hours
Subjective/Interval History
-
Date of Service: February 10, 2024
Objective Data
-
Vital Signs:
Vital Signs
Temp Pulse Resp BP Pulse Ox
99.5 F 76 16 132/73 98
02/10/24 11:20 02/10/24 11:37 02/10/24 11:37 02/10/24 11:20 02/10/24 11:37
I&O
02/09/24 02/10/24 02/11/24
06:59 06:59 06:59
Intake Total 960 / 960
Output Total 180 / 180 1100 / 1100
Balance -180 / -180 -140 / -140
Physical Exam
-
General: Other (General: NAD, no respiratory distress, appears older then stated age and frail HENT: atraumatic, scleral anicteric, no rhinorrhea noted, eomi Neck: Supple without JVD Heart: RRR, s1/s2 Lungs: RLL noted rhonchi, Left lung lobes clear
Abd: Soft, NT, ND, BS+ Extremities: Without edema, able to move ext)
HEENT: Normocephalic, Atraumatic and Moist Mucous Membranes
Respiratory: Rhonchi (Right lung.); Negative Wheezes
Cardiac: Regular Rhythm and S1/S2; Negative Murmur, Rub or Gallop
GI: Soft, Nontender, Nondistended and Normal Bowel Sounds; Negative Organomegaly
Rectal: Deferred by Provider
Musculoskeletal: No Clubbing, No Cyanosis and No Edema
Skin: Negative Rash
Neuro: Awake, Alert, Oriented and Nonfocal/Grossly Intact
[2024-02-10 15:20] VITALS: BP 130/75
[2024-02-10] MEDS: CRESTOR 40 MG PO (17:09)
[2024-02-10 19:45] VITALS: BP 128/63
[2024-02-10] MEDS: PEPCID 20 MG PO (21:44)
[2024-02-10] MEDS: OCEAN, SALINE MIST 50 SPRAYS NASAL (21:44)
[2024-02-10] MEDS: DESYREL 100 MG PO (21:44)
[2024-02-10 23:51] VITALS: BP 119/65
[2024-02-11] MEDS: ROCEPHIN 1000 MG IV (01:11)
[2024-02-11] MEDS: STERILE WATER FOR INJECTION 10 ML IV (01:13)
[2024-02-11 03:45] VITALS: BP 126/70
[2024-02-11 05:02] VITALS: BMI 22.4
[2024-02-11 07:25] VITALS: BP 119/74
[2024-02-11] MEDS: SPIRIVA RESPIMAT 2.5 MCG 2 PUFF INH (07:28)
[2024-02-11] MEDS: STRIVERDI RESPIMAT 2 PUFF INH (07:29)
[2024-02-11] MEDS: VENTOLIN NEBULES 2.5 MG INH ×4 (07:31→19:27)
[2024-02-11] MEDS: MUCINEX 600 MG PO ×2 (08:52→20:38)
[2024-02-11] MEDS: VIBRAMYCIN 100 MG PO ×2 (08:52→20:38)
[2024-02-11] MEDS: PROTONIX 40 MG PO (08:52)
[2024-02-11] MEDS: TOPROL XL 25 MG PO (08:52)
[2024-02-11] MEDS: ELIQUIS 5 MG PO ×2 (08:52→20:38)
[2024-02-11 11:21] VITALS: BP 121/64
--- NOTE | 2024-02-11 12:09 | CM ---
Addendum entered by Nara Bhatia 02/11/24 12:55:
CM left message for patients son, Melvin ([phone]).
Original Note:
Patient seen bedside, discussed PT recommendation of SNF. Patient reports he has been to rehabs in the past, did not find them helpful. Patient is agreeable to a referral to [facility] in addition to his caregiver services at home. CM will send referral
in [facility]. CM will continue to follow for all discharge planning needs.
Plan; patient not agreeable to SNF, agreeable to [facility], watch O2 needs.
--- NOTE | 2024-02-11 14:09 | W.PN.HOSP.TC ---
Addendum entered and electronically signed by Mlevin Dsouza MD 02/11/24 17:43:
Dr. Jose Luis Altman, radiology does not believe CT of arm will provide any useful information and recommends nuclear bone scan instead. Will change order to his recommendation
Original Note:
Today's Communication/Plan
-
recheck labs
CT scan of chest
Assessment / Plan
Assessment / Plan
Acute hypoxic respiratory failure secondary to CAP
- on antibiotics with ctx and doxy to complete 5day course
WBC 12.1-->9.8k
CXR 02/08: There is a new parenchymal airspace opacity within the right lower lobe of the lung, which is likely pneumonia. Advise follow-up to exclude underlying neoplasia.
'Moth-eaten' appearance to the visualized left humeral shaft. 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 Consideration for further
evaluation with nuclear medicine bone scan and/or MRI of the left humerus.
- covid -, sputum cx pending if able to expectorate
- wean o2 as tolerated
- maintain spo2 >90%
2 L/M NC SaO2 97%
- provide incentive spirometer/acapella
- pt/ot consulted, likely as poor ampac and may need snf on dc
- - allow for early mobilization with oob to chair as much as possible to reduce deconditioning
-Patient with prior history of CVA neurologic sequela. Speech and swallow relation appreciated with no evidence of aspiration.
Sepsis without septic shock likely source pulmonary
- bcx pending
- iv antibiotics
- follow up on sputum culture
Asymptomatic bacteriuria
- no treatment at this time
COPD without evidence of acute exacerbation
- continue MDI's
PAFib
- continue bb and ac
Inguinal hernia
- without evidence of incarceration/strangulation, reducible
- outpatient general surgery follow up
CVA without reported residual deficits
- on eliquis and HI statin
GERD
- continue ppi and [id number]
B12 Def
- continue b12 supplementation
HTN
- hold ARB for now, if becoming hypertensive can resume
DVT ppx
- eliquis bid
Pending: Wean o2, IVAbx follow up culture data, PT/OT
Diet: Regular house/Cholesterol lowering
Code status: Full code
Dispo: [facility]
Situation reviewed with sonMelvin
will order CT scan of chest, consider further evaluation of left humerus
Anticipated Discharge: > 48 hours
Subjective/Interval History
-
Date of Service: February 11, 2024
Awake, alert, conversant
Objective Data
-
Vital Signs:
Vital Signs
Temp Pulse Resp BP Pulse Ox
98.5 F 87 16 121/64 97
02/11/24 11:21 02/11/24 11:37 02/11/24 11:37 02/11/24 11:21 02/11/24 11:37
I&O
02/10/24 02/11/24 02/12/24
06:59 06:59 06:59
Intake Total 960 / 960
Output Total 1100 / 1100 1250 / 1250
Balance -140 / -140 -1250 / -1250
Review of Systems
-
History Source: Patient and Coordinated Provider
Constitutional: Reports Fever (100.6 on 02/09 19:45)
EENT: Reports No Symptoms Reported
Respiratory: Reports Cough, Trouble Breathing and Wheezing
Cardiac: Reports No Symptoms and Chest Pain
Abdomen/GI: Reports No Symptoms; Denies Abdominal Pain, Nausea or Vomiting
Physical Exam
-
General: Well Developed, Well Nourished and No Apparent Distress
HEENT: Normocephalic, Atraumatic and Moist Mucous Membranes
Respiratory: Wheezes (holoexpiratory wheeze)
Cardiac: Regular Rhythm and S1/S2
GI: Soft, Nontender and Nondistended
Musculoskeletal: No Clubbing, No Cyanosis and No Edema
Neuro: Awake, Alert and Oriented
[2024-02-11 15:05] VITALS: BP 126/69
[2024-02-11] MEDS: CRESTOR 40 MG PO (17:08)
[2024-02-11 19:42] VITALS: BP 138/74
[2024-02-11] MEDS: PEPCID 20 MG PO (20:38)
[2024-02-11] MEDS: TYLENOL 650 MG PO (20:38)
[2024-02-11] MEDS: DESYREL 100 MG PO (20:39)
[2024-02-11 22:16] LABS: Blood Urea Nitrogen 13 mg/dl (9-20); Calcium 8.5 mg/dl (8.4-10.2); Carbon Dioxide 28 mmol/L (22-30); Chloride 100 mmol/L (98-107); Estimated Creatinine Clearance 97 ml/min; Glucose 144 mg/dl (70-99); Magnesium 1.7 mg/dl (1.6-2.3); Potassium 3.4 mmol/L (3.5-5.1); Sodium 134 mmol/L (135-145); eGFR > 60.00
[2024-02-11 23:42] VITALS: BP 104/59
[2024-02-12] VITALS (8 sets, daily range): BP systolic 97–125; BP diastolic 57–73
[2024-02-12] MEDS: ROCEPHIN 1000 MG IV (01:48)
[2024-02-12] MEDS: STERILE WATER FOR INJECTION 10 ML IV (01:48)
[2024-02-12 06:40] LABS: % Basophils 0.5 % (0-2); % Eosinophils 2.1 % (0-6); % Immature Granulocytes 0.5 % (0-0.5); % Lymphocytes 16.3 % (20.5-51.1); % Monocytes 13.5 % (1.7-9.3); % Neutrophils 67.1 % (42.2-75.2); Absolute Eosinophils 0.1 10^3/uL (0-0.7); Absolute Monocytes 0.9 10^3/uL (0.1-0.6); Absolute Neutrophils 4.2 10^3/uL (1.4-6.5); Hematocrit 33.6 % (39.0-52.0); Hemoglobin 11.3 g/dL (13.0-18.0); Mean Corp Hgb Conc. 33.6 g/dL (33.0-37.0); Mean Corpuscular Hgb 25.5 pg (27.0-31.0); Mean Corpuscular Volume 75.8 fL (80.0-94.0); Mean Platelet Volume 10.2 fL (7.4-10.4); Nucleated Red Blood Cells % 0 % (-); Platelet Count 188 10^3/uL (130-400); Red Blood Cell Count 4.43 10^6/uL (4.70-6.10); Red Cell Dist. Width 13.9 % (11.5-14.5); White Blood Cell Count 6.3 10^3/uL (4.8-10.8)
[2024-02-12 07:07] LABS: ALT (SGPT) 62 U/L (0-50); AST (SGOT) 95 U/L (17-59); Alkaline Phosphatase 87 U/L (38-126); Blood Urea Nitrogen 11 mg/dl (9-20); Calcium 8.7 mg/dl (8.4-10.2); Carbon Dioxide 29 mmol/L (22-30); Chloride 102 mmol/L (98-107); Estimated Creatinine Clearance 97 ml/min; Glucose 101 mg/dl (70-99); Potassium 3.5 mmol/L (3.5-5.1); Sodium 137 mmol/L (135-145); Total Bilirubin 0.5 mg/dl (0.2-1.3); Total Protein 5.5 g/dl (6.3-8.2); eGFR > 60.00
[2024-02-12] MEDS: SPIRIVA RESPIMAT 2.5 MCG 2 PUFF INH (07:17)
[2024-02-12] MEDS: STRIVERDI RESPIMAT 2 PUFF INH (07:17)
[2024-02-12] MEDS: VENTOLIN NEBULES 2.5 MG INH ×4 (07:23→20:04)
[2024-02-12 08:11] LABS: Erythrocyte Sed Rate 71 mm/hour (0-20)
[2024-02-12] MEDS: TOPROL XL 25 MG PO (08:36)
[2024-02-12] MEDS: VIBRAMYCIN 100 MG PO ×2 (08:36→20:48)
[2024-02-12] MEDS: ELIQUIS 5 MG PO ×2 (08:36→21:31)
[2024-02-12] MEDS: PROTONIX 40 MG PO (08:36)
[2024-02-12] MEDS: MUCINEX 600 MG PO ×2 (08:36→21:31)
[2024-02-12] MEDS: FLUSH (NSS) 1 FLUSH IV (08:37)
--- NOTE | 2024-02-12 08:42 | PTCARENOTE ---
"noted tachycardia on tele monitor- patient assessed, found post neb treatment , room air pox 90% , patient did not feel tachycardia, no resp distress noted. placed back on oxygen and POX up to 94%. ecg completed showing rapid Afib- BP 112/60. "Lew"Chriss notified, he consulted cardiology. patient remains in rapid afib. Dr ortiz aware of above and instructed to give morning toprol dose. Dose given. plan of care on going."
--- NOTE | 2024-02-12 11:39 | PTCARENOTE ---
patient presently in SR 80-100. tolerated episode of rapid afib. will update physician on rounds. plan of care on going.
--- NOTE | 2024-02-12 12:07 | CON.CAR ---
Consultation
Consultation Request
Date/Time Consultation Requested: February 12, 2024
Date/Time Consultation Performed: February 12, 2024
Requesting Provider: Hospitalist
Performing Provider: Lindsay
Reason for Consultation: Atrial fibrillation with rapid ventricular response
Medical History
-
Chief Complaint: Atrial fibrillation with rapid ventricular response
History of Present Illness:
Rodo is a very pleasant 83-year-old male who is currently admitted for a significant pneumonia and wheezing. He is being worked up for evidence of cancer and metastatic disease please see separate internal medicine notes. He does carry a long
standing history of ischemic stroke, paroxysmal atrial fibrillation, myocardial infarction, hypertension, drug-eluting stent placement, and history of COPD. After his nebulizer this morning he went into atrial fibrillation with a heart rate in the
160s to 170s and after 2.5 of IV Lopressor he was having some wheezing but intermittent sinus beats with paroxysmal atrial fibrillation. He has a Cypher stent to his circumflex artery in 2003 with moderate to severe COPD and a CVA in 2022. This
was diagnosed in the setting of new onset atrial fibrillation. He did have some petechial hemorrhage at the time of that infarct. He has been tolerating Eliquis reasonably and has at baseline some ongoing left-sided weakness from prior stroke. He
has normal LV function on echocardiogram from 2022 and his last exercise stress test which was available to me was from September 2016 which revealed a small fixed inferior and inferobasal defect with ejection fraction of 67%. Current imaging during
hospitalization demonstrates an pneumonia and lung process as well as possible lytic lesion in the bone.
Past Medical History
Past Medical History: Arrhythmias, CAD, COPD and CVA
Social History
Tobacco: Former Smoker
Alcohol: None
Drug: None
Personal: Other
Living: Other
Employment: Retired
Family History
Family History: Reviewed & Not Pertinent
Allergies / Home Medications
Allergy/AdvReac Type Severity Reaction Status Date / Time
penicillin G Allergy childhood-i Verified 02/09/24 20:43
tchy
Penicillins Allergy Unknown-chi Verified 02/09/24 20:43
ldhood-itcy
�Medication �Instructions �Recorded �Confirmed �Type
omeprazole 40 mg capsule,delayed 40 mg PO DAILY Gastrointestinal 01/15/23 02/09/24 History
release Issue
rosuvastatin 40 mg tablet (Crestor) 40 mg PO DAILY High Cholesterol 01/15/23 02/09/24 History
tiotropium 2.5 mcg-olodaterol 2.5 2 puff inhalation DAILY 01/15/23 02/09/24 History
mcg/actuation mist for inhalation Lung/Breathing Issues
(Stiolto Respimat)
apixaban 5 mg tablet (Eliquis) 5 mg PO BID #0 tabs 01/20/23 02/09/24 Rx
cyanocobalamin (vitamin B-12) 1,000 mcg PO DAILY #30 tabs 02/09/23 02/09/24 Rx
1,000 mcg tablet
multivitamin with folic acid 400 1 tab PO DAILY #30 tabs 02/09/23 02/09/24 Rx
mcg tablet (Tab-A-Zach)
trazodone 100 mg tablet 100 mg PO HS #30 tabs 02/09/23 02/09/24 Rx
Pepcid 20 mg PO DAILY 02/09/24 02/09/24 History
Toprol XL 25 mg PO DAILY 02/09/24 02/09/24 History
losartan 25 mg PO DAILY 02/09/24 02/09/24 History
Review of Systems
-
All other systems: Negative unless noted
Respiratory: Trouble Breathing
Physical Exam
Vital Signs
Temp Pulse Resp BP Pulse Ox
99.4 F 85 16 102/60 95
02/12/24 11:27 02/12/24 11:40 02/12/24 11:40 02/12/24 11:27 02/12/24 11:40
Lab Results
02/12/24 06:19
02/12/24 06:19
Physical Exam
General: Well Developed, Well Nourished (Appears somewhat cachectic) and Poor Appetite
HEENT: Normocephalic and Anicteric
Respiratory: Wheezes
Cardiac: Irregular Rhythm and Murmur
Breast: Deferred by me
GI: Soft, Non Tender and Non Distended
Rectal: Deferred by Provider
Musculoskeletal: No Clubbing and No Cyanosis
Skin: Warm and Dry
Neuro: Awake and Alert
Hematologic/Lymphatic: No Lymphadenopathy
Psych: Calm
Impression / Plan
-
Impression:
Consulted for atrial fibrillation with rapid ventricular response
Acute pneumonia
'Moth-eaten' appearance to the visualized left humeral shaft. 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
History of CVA
Sepsis without septic shock likely source pulmonary
Asymptomatic bacteriuria
COPD without evidence of acute exacerbation
HTN
History of ischemic stroke
History of old myocardial infarction
History of circumflex stent
History of paroxysmal atrial fibrillation
Recommend:
Given his active wheezing but response to IV AV phu agent with metoprolol I will add Cardizem p.o. to his regimen as blood pressure tolerates with hold parameter. We can continue current dose of p.o. metoprolol although given his active wheezing
I am reticent to increase that dose or add IV metoprolol to his regimen.
I am concerned over his pneumonia findings as well as findings in the left humeral shaft and I suspect his overall inflammatory and medical picture puts him at risk for ongoing atrial fibrillation. He has no current active chest pain so I do not
believe an ischemic workup is needed while hospitalized. If he has not had a recent echocardiogram within the last 6 months would be reasonable to repeat I will check on this.
Please continue oral anticoagulation unless other procedures are considered.
We will follow with you and maintain telemetry
Data Reviewed
-
EKG: Tracing Personally Visualized and interpreted
Radiology: Image Personally Visualized and interpreted
CT Scan: Report Reviewed by me
Medical Tests (Nuc Med, Echo etc): Report Reviewed by me
Labs: Labs Reviewed by me
Old Records: Reviewed
[2024-02-12] MEDS: CARDIZEM CD 180 MG PO (12:29)
--- NOTE | 2024-02-12 14:43 | W.PN.HOSP.TC ---
Today's Communication/Plan
-
SPEP, PSA, light chains
CT scan of chest
Bone Scan
Heme/Onc consult
Assessment / Plan
Assessment / Plan
Acute hypoxic respiratory failure secondary to CAP
- on antibiotics with ctx and doxy to complete 5day course
WBC 12.1-->9.8-->6.3k
CXR 02/08: There is a new parenchymal airspace opacity within the right lower lobe of the lung, which is likely pneumonia. Advise follow-up to exclude underlying neoplasia.
'Moth-eaten' appearance to the visualized left humeral shaft. 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 Consideration for further
evaluation with nuclear medicine bone scan and/or MRI of the left humerus.
- covid -, sputum cx pending if able to expectorate
- wean o2 as tolerated
- maintain spo2 >90%
2 L/M NC SaO2 95%
- provide incentive spirometer/acapella
- pt/ot consulted, likely as poor ampac and may need snf on dc
- - allow for early mobilization with oob to chair as much as possible to reduce deconditioning
-Patient with prior history of CVA neurologic sequela. Speech and swallow relation appreciated with no evidence of aspiration.
Sepsis without septic shock likely source pulmonary
- bcx pending
- iv antibiotics
- follow up on sputum culture
Asymptomatic bacteriuria
- no treatment at this time
COPD without evidence of acute exacerbation
- continue MDI's
PAFib
- continue bb and ac
Pt went in a.fib with rvr this morning. Dr. Montoya consulted. Now on Diltiazem CD 180 mg and back in NSR
Inguinal hernia
- without evidence of incarceration/strangulation, reducible
- outpatient general surgery follow up
CVA without reported residual deficits
- on eliquis and HI statin
GERD
- continue ppi and [id number]
B12 Def
- continue b12 supplementation
HTN
- hold ARB for now, if becoming hypertensive can resume
DVT ppx
- eliquis bid
Pending: Wean o2, IVAbx follow up culture data, PT/OT
Diet: Regular house/Cholesterol lowering
Code status: Full code
Dispo: [facility]
Situation reviewed with son, Melvin 02/[address] scan of chest for 02/12 to confirm no underlying pulmonary mass lesion, consider further evaluation of left humerus. Discussed with radio 02/10. Their suggestion is a bone scan to start and has been ordered.
Discussed with Dr. Davies, will order SPEP, Serum free light chains and PSA and place consult. Pt told about abn x-ray images and need for further evaluation
Anticipated Discharge: > 48 hours
Subjective/Interval History
-
Date of Service: February 12, 2024
episode of a. fib with rvr earlier today, cardio consulted and doing better, now in NSR
Objective Data
-
Labs:
Laboratory Results
02/12/24
06:19
WBC 6.3
Hgb 11.3 L
Hct 33.6 L
Plt Count 188 D
Sodium 137
Potassium 3.5
Chloride 102
Carbon Dioxide 29
BUN 11
Creatinine 0.6 L
Glucose 101 H
Calcium 8.7
Total Bilirubin 0.5
AST 95 H
ALT 62 H
Alkaline Phosphatase 87
Vital Signs:
Vital Signs
Temp Pulse Resp BP Pulse Ox
99.4 F 85 16 113/62 95
02/12/24 11:27 02/12/24 11:40 02/12/24 11:40 02/12/24 12:29 02/12/24 11:40
I&O
02/11/24 02/12/24 02/13/24
06:59 06:59 06:59
Intake Total 600 / 600
Output Total 1250 / 1250 1020 / 1020
Balance -1250 / -1250 -420 / -420
Review of Systems
-
History Source: Patient and Coordinated Provider
Constitutional: Reports Fever (100.6 on 02/09 19:45)
EENT: Reports No Symptoms Reported
Respiratory: Reports Cough, Trouble Breathing and Wheezing
Cardiac: Reports No Symptoms and Chest Pain
Abdomen/GI: Reports No Symptoms; Denies Abdominal Pain, Nausea or Vomiting
Physical Exam
-
General: Well Developed, Well Nourished and No Apparent Distress
HEENT: Normocephalic, Atraumatic and Moist Mucous Membranes
Respiratory: Wheezes (holoexpiratory wheeze, moving air better 02/11)
Cardiac: Regular Rhythm and S1/S2
GI: Soft, Nontender and Nondistended
Musculoskeletal: No Clubbing, No Cyanosis and No Edema
Neuro: Awake, Alert and Oriented
[2024-02-12] MEDS: CRESTOR 40 MG PO (17:27)
[2024-02-12] MEDS: PEPCID 20 MG PO (21:31)
[2024-02-12] MEDS: DESYREL 100 MG PO (21:31)
[2024-02-13] MEDS: STERILE WATER FOR INJECTION 10 ML IV (01:41)
[2024-02-13] MEDS: ROCEPHIN 1000 MG IV (01:41)
[2024-02-13 03:03] VITALS: BP 112/73
[2024-02-13 07:02] VITALS: BP 118/71
[2024-02-13] MEDS: STRIVERDI RESPIMAT 2 PUFF INH (07:14)
[2024-02-13] MEDS: SPIRIVA RESPIMAT 2.5 MCG 2 PUFF INH (07:14)
[2024-02-13] MEDS: PROTONIX 40 MG PO (07:36)
[2024-02-13] MEDS: TOPROL XL 25 MG PO (07:36)
[2024-02-13] MEDS: CARDIZEM CD 180 MG PO (07:37)
[2024-02-13] MEDS: ELIQUIS 5 MG PO ×2 (07:38→20:53)
[2024-02-13] MEDS: MUCINEX 600 MG PO ×2 (07:38→20:53)
[2024-02-13 08:22] LABS: % Basophils 0.4 % (0-2); % Eosinophils 2.3 % (0-6); % Immature Granulocytes 0.5 % (0-0.5); % Lymphocytes 12.3 % (20.5-51.1); % Monocytes 10.1 % (1.7-9.3); % Neutrophils 74.4 % (42.2-75.2); Absolute Eosinophils 0.2 10^3/uL (0-0.7); Absolute Lymphocytes 0.9 10^3/uL (1.2-3.4); Absolute Monocytes 0.8 10^3/uL (0.1-0.6); Absolute Neutrophils 5.6 10^3/uL (1.4-6.5); Hematocrit 37.1 % (39.0-52.0); Hemoglobin 11.8 g/dL (13.0-18.0); Mean Corp Hgb Conc. 31.8 g/dL (33.0-37.0); Mean Corpuscular Hgb 25.1 pg (27.0-31.0); Mean Corpuscular Volume 78.9 fL (80.0-94.0); Mean Platelet Volume 10.7 fL (7.4-10.4); Nucleated Red Blood Cells % 0 % (-); Platelet Count 206 10^3/uL (130-400); Red Cell Dist. Width 13.9 % (11.5-14.5); White Blood Cell Count 7.5 10^3/uL (4.8-10.8)
[2024-02-13 08:51] LABS: ALT (SGPT) 90 U/L (0-50); AST (SGOT) 121 U/L (17-59); Alkaline Phosphatase 102 U/L (38-126); Blood Urea Nitrogen 13 mg/dl (9-20); Calcium 8.9 mg/dl (8.4-10.2); Carbon Dioxide 27 mmol/L (22-30); Chloride 101 mmol/L (98-107); Estimated Creatinine Clearance 97 ml/min; Glucose 95 mg/dl (70-99); Potassium 3.6 mmol/L (3.5-5.1); Sodium 137 mmol/L (135-145); Total Bilirubin 0.5 mg/dl (0.2-1.3); Total Protein 5.6 g/dl (6.3-8.2); eGFR > 60.00
[2024-02-13 09:20] LABS: PSA, Total - Screen 1.31 ng/ml (0.0-4.0)
--- NOTE | 2024-02-13 12:45 | W.PN.CARDCBS ---
Addendum entered and electronically signed by Claudio Lema DO 02/13/24 15:49:
I saw and examined the patient.
The [employer] Reporter's note was reviewed and I agree with the note.
Comment:
Plan:
Remains sinus after spontaneous conversion yesterday
Cont Eliquis for prophylaxis and Toprol XL for rate control with Cardizem
Echo reviewed by me 02/13/2024: Very technically difficult study, normal LV size with EF 55 to 60%, no significant valvular disease within the limitations of the study, compared to echo 01/2023 there is no significant change
Heme/Onc eval for possible tumor with metastatic disease.
Will arrange outpt follow up
Stable cv status.
Please recall if needed.
Original Note:
Today's Communication / Plan
-
Remains in SR following spontaneous conversion yesterday
Cont Eliquis and Toprol XL plus new addition of Cardizem CD
Heme/Onc now following and there is concern for metastatic disease and post-obstructive PNA from mass
Impression / Plan
-
PCP: Dr. Ruby
Cardiology: Dr. Flores
Impression:
Admitted with acute PNA
Sepsis without septic shock likely source pulmonary
Asymptomatic bacteriuria
Afib with RVR
Paroxysmal Afib
Chronic Eliquis OAC
Abnormal CXR with 'moth-eaten' appearance to the visualized left humeral shaft 02/09/24
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
CAD s/p OK and Circumflex PCI
History of CVA
COPD without evidence of acute exacerbation
HTN
Echo 02/13/2024: Very technically difficult study, normal LV size with EF 55 to 60%, no significant valvular disease within the limitations of the study, compared to echo 01/2023 there is no significant change
Plan:
-Patient spontaneously converted to SR later in the day on 02/12/24.
-Outpatient dose of Toprol XL 25 mg daily continued plus new dose of Cardizem CD 180 mg daily added 02/12/24 with stable BP 112/73
-Outpatient dose of Eliquis 5 mg BID has been continued
-EF stable by echo
-Heme/Onc saw patient on 02/13/24 to review abnormal CXR and there is a concern for metastatic disease or possibly myeloma. Pulmonology consultation suggested to look for post-obstructive PNA from possible lung mass
HPI: Rodo is a very pleasant 83-year-old male who is currently admitted for a significant pneumonia and wheezing. He is being worked up for evidence of cancer and metastatic disease please see separate internal medicine notes. He does carry a
long standing history of ischemic stroke, paroxysmal atrial fibrillation, myocardial infarction, hypertension, drug-eluting stent placement, and history of COPD. After his nebulizer this morning he went into atrial fibrillation with a heart rate in
the 160s to 170s and after 2.5 of IV Lopressor he was having some wheezing but intermittent sinus beats with paroxysmal atrial fibrillation. He has a Cypher stent to his circumflex artery in 2003 with moderate to severe COPD and a CVA in 2022.
This was diagnosed in the setting of new onset atrial fibrillation. He did have some petechial hemorrhage at the time of that infarct. He has been tolerating Eliquis reasonably and has at baseline some ongoing left-sided weakness from prior
stroke. He has normal LV function on echocardiogram from 2022 and his last exercise stress test which was available to me was from September 2016 which revealed a small fixed inferior and inferobasal defect with ejection fraction of 67%. Current
imaging during hospitalization demonstrates an pneumonia and lung process as well as possible lytic lesion in the bone.
Progress Note - [employer] Technician
Subjective
Date of Service: February 13, 2024
No chest pain or palpitations
Objective
Labs:
02/13/24 07:50
02/13/24 07:50
Labs
Hgb 11.8 g/dL (13.0-18.0) L 02/13/24 07:50
Hct 37.1 % (39.0-52.0) L 02/13/24 07:50
Plt Count 206 10^3/uL (130-400) 02/13/24 07:50
Sodium 137 mmol/L (135-145) 02/13/24 07:50
Potassium 3.6 mmol/L (3.5-5.1) 02/13/24 07:50
BUN 13 mg/dl (9-20) 02/13/24 07:50
Creatinine 0.6 mg/dL (0.7-1.3) L 02/13/24 07:50
Glucose 95 mg/dl (70-99) 02/13/24 07:50
Vital Signs and I&O:
Vital Signs
Temp Pulse Resp BP Pulse Ox
98.5 F 68 20 112/73 97
02/13/24 07:02 02/13/24 07:37 02/13/24 07:16 02/13/24 07:37 02/13/24 07:43
Vital Signs
Temp Pulse Resp BP Pulse Ox
98.5 F 68 20 112/73 97
02/13/24 07:02 02/13/24 07:37 02/13/24 07:16 02/13/24 07:37 02/13/24 07:43
Intake & Output
02/11/24 02/12/24 02/13/24 02/14/24
06:59 06:59 06:59 06:59
Intake Total 600 / 600 360 / 360
Output Total 1250 / 1250 1020 / 1020 655 / 655
Balance -1250 / -1250 -420 / -420 -295 / -295
Physical Exam
Physical Exam
GEN: AAOx3
HEENT: mmm
LUNGS: Wearing oxygen at 2 L NC
CV: SR on tele
EXT: No edema
NEURO: Gross non-focal
SKIN: No rash
--- NOTE | 2024-02-13 13:19 | CON.ONC ---
Impression
Impression
Pneumonia
Hx tobacco use disorder
Abnormal appearance of L humerus on CXR and CT chest. bone scan consistent with disuse osteopenia
Possible lung mass
Plan
Plan
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
PSA normal.
We will follow up on myeloma studies but based on bone scan reading, low index of suspicion for occult malignancy.
Gageon Jocelin ordered PRN cough.
Thank you for consult.
Patient History
History of Present Illness
Rodo is an 83-year-old man with medical history of ischemic stroke, paroxysmal atrial fibrillation, coronary artery disease status post drug-eluding stent placement, remote tobacco use disorder (quit 1983) and COPD. He has been admitted for
pneumonia, hospital course complicated by atrial fibrillation with rapid ventricular response. Chest x-ray incidentally noted irregular thickening and appearance of proximal left humeral cortex suspicious for possible neoplastic infiltration. CT
chest showed same. Pt feels very strongly about being notified about why studies and medications are being ordered and he would like to opportunity to consent or refuse. He states he has lost 40 lbs since his stroke 1 year ago. Admits to pain in L
arm but states it is because the arm is paralyzed and becomes painful from hanging, improves with using sling. Admits to cough currently.
Past-Medical/Surgical History
Past Medical History
Essential Hypertension
Dyslipidemia
Paroxysmal Atrial Fibrillation
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
COPD
Coronary artery disease
Social History
Tobacco: Former Smoker
Alcohol: None
Drug: None
Personal: Other
Living: Other
Employment: Retired
Family History
Family History: Reviewed & Not Pertinent
Patient Medication
�Medication �Instructions �Recorded �Confirmed �Last Taken �Type
omeprazole 40 mg capsule,delayed 40 mg PO DAILY Gastrointestinal 01/15/23 02/09/24 01/14/23 08:00 History
release Issue
rosuvastatin 40 mg tablet (Crestor) 40 mg PO DAILY High Cholesterol 01/15/23 02/09/24 01/13/23 20:00 History
tiotropium 2.5 mcg-olodaterol 2.5 2 puff inhalation DAILY 01/15/23 02/09/24 01/14/23 08:00 History
mcg/actuation mist for inhalation Lung/Breathing Issues
(Stiolto Respimat)
apixaban 5 mg tablet (Eliquis) 5 mg PO BID #0 tabs 01/20/23 02/09/24 Unknown Rx
cyanocobalamin (vitamin B-12) 1,000 mcg PO DAILY #30 tabs 02/09/23 02/09/24 Unknown Rx
1,000 mcg tablet
multivitamin with folic acid 400 1 tab PO DAILY #30 tabs 02/09/23 02/09/24 Unknown Rx
mcg tablet (Tab-A-Zach)
trazodone 100 mg tablet 100 mg PO HS #30 tabs 02/09/23 02/09/24 02/09/24 Rx
Pepcid 20 mg PO DAILY 02/09/24 02/09/24 Unknown History
Toprol XL 25 mg PO DAILY 02/09/24 02/09/24 Unknown History
losartan 25 mg PO DAILY 02/09/24 02/09/24 Unknown History
Active Medications
Generic Name Dose Route Start Last Admin
Trade Name Freq PRN Reason Stop Dose Admin
Acetaminophen 650 mg 02/09/24 02:40 02/11/24 20:38
Acetaminophen 325 Mg Tablet PO 03/08/24 02:39 650 mg
Q4HPRN PRN Administration
mild pain/DELA CRUZ/temp> 100.4F
Apixaban 5 mg 02/09/24 08:00 02/13/24 07:38
Apixaban (Eliquis) 5 Mg Tablet PO 03/08/24 07:59 5 mg
BID MELINDA Administration
Bisacodyl 10 mg 02/09/24 02:40
Bisacodyl 10 Mg Rectal Suppository RECTAL 03/08/24 02:39
[id number] PRN
constipation
Ceftriaxone Sodium 1,000 mg 02/10/24 01:00 02/13/24 01:41
Ceftriaxone 1000 Mg / 10 Ml Vial IV 1,000 mg
Q24H MELINDA Administration
Diltiazem HCl 180 mg 02/12/24 13:00 02/13/24 07:37
Diltiazem 180 Mg Extended Release (24 H) Capsule PO 03/11/24 12:59 180 mg
DAILY MELINDA Administration
Famotidine 20 mg 02/09/24 22:00 02/12/24 21:31
Famotidine 20 Mg Tablet PO 03/08/24 21:59 20 mg
HS MELINDA Administration
Guaifenesin 600 mg 02/09/24 08:00 02/13/24 07:38
Guaifenesin 600 Mg Extended Release Tablet PO 03/08/24 07:59 600 mg
Q12 MELINDA Administration
Metoprolol Succinate 25 mg 02/09/24 08:00 02/13/24 07:36
Metoprolol 25 Mg Extended Release Tablet PO 03/08/24 07:59 25 mg
DAILY MELINDA Administration
Olodaterol 2 puff 02/09/24 08:00 02/13/24 07:14
Olodaterol (Striverdi Respimat) 2.5 Mcg Inhaler INH 03/08/24 07:59 2 puff
R DAILY MELINDA Administration
Pantoprazole Sodium 40 mg 02/09/24 08:00 02/13/24 07:36
Pantoprazole 40 Mg Delayed Release Tablet PO 03/08/24 07:59 40 mg
DAILY MELINDA Administration
Polyethylene Glycol 17 grams 02/09/24 02:40
Polyethylene Glycol Powder 17 Grams Packet PO 03/08/24 02:39
DAILYPRN PRN
constipation
Rosuvastatin Calcium 40 mg 02/09/24 18:00 02/12/24 17:27
Rosuvastatin (Crestor) 40 Mg Tablet PO 03/08/24 17:59 40 mg
QPM MELINDA Administration
Senna/Docusate Sodium 1 tablet 02/09/24 02:40
Docusate W/Senna (Martha-Colace) Tablet PO 03/08/24 02:39
BIDPRN PRN
constipation
Sodium Chloride 0 flush 02/09/24 03:00 02/12/24 08:37
Sodium Chloride 0.9% (Flush) Syringe IV 03/08/24 02:59 1 flush
PER PROTOCOL MELINDA Administration
Sodium Chloride 0 sprays 02/10/24 20:58 02/10/24 21:44
Sodium Chloride 0.65% Nasal [place] 45 Ml Bottle NASAL 03/09/24 20:57 50 sprays
QIDPRN PRN Administration
dry nares
Sterile Water 10 ml 02/10/24 01:00 02/13/24 01:41
Sterile Water For Injection 10 Ml Vial IV 03/09/24 00:59 10 ml
Q24H MELINDA Administration
Tiotropium [place] 2 puff 02/09/24 08:00 02/13/24 07:14
Tiotropium (Spiriva Respimat) 2.5 Mcg Inhaler INH 03/08/24 07:59 2 puff
R DAILY MELINDA Administration
Trazodone HCl 100 mg 02/09/24 22:00 02/12/24 21:31
Trazodone 100 Mg Tablet PO 03/08/24 21:59 100 mg
HS MELINDA Administration
Review of Systems
-
History Source: Patient and Records
All Other Systems: Reviewed and Negative
Constitutional: Reports Weight Loss
EENT: Reports No Symptoms
Respiratory: Reports Cough and Trouble Breathing
Cardiac: Reports No Symptoms
GI: Reports No Symptoms
: Reports No Symptoms
Musculoskeletal: Reports No Symptoms
Skin: Reports No Symptoms
Neuro: Reports Other (L-sided paralysis)
Physical Exam
-
General: Comfortable, Conversant and Appears Chronically Ill
HEENT: Moist Mucous Membranes; Negative Jaundice
Cardiology: Normal Sinus Rhythm, S1 and S2
Pulmonary: Other (decreased breath sounds)
GI: Soft and Flat
Genito-Urinary: No Costovertebral Tenderness
Musculoskeletal: No Clubbing, No Cyanosis and No Edema
Extremities: No C/C/E
Neurology: Other (L upper and lower extremity paralysis)
Skin: Warm and Dry
Hematologic / Lymphatic: No Lymphadenopathy
Psych: Other (Angry initially but relaxed during course of convesatio)
Labs
Lab Results
WBC 7.5 10^3/uL (4.8-10.8) 02/13/24 07:50
RBC 4.70 10^6/uL (4.70-6.10) 02/13/24 07:50
Hgb 11.8 g/dL (13.0-18.0) L 02/13/24 07:50
Hct 37.1 % (39.0-52.0) L 02/13/24 07:50
MCV 78.9 fL (80.0-94.0) L 02/13/24 07:50
MCH 25.1 pg (27.0-31.0) L 02/13/24 07:50
MCHC 31.8 g/dL (33.0-37.0) L 02/13/24 07:50
RDW 13.9 % (11.5-14.5) 02/13/24 07:50
Plt Count 206 10^3/uL (130-400) 02/13/24 07:50
MPV 10.7 fL (7.4-10.4) H 02/13/24 07:50
Abs Immat Gran (auto) 0.0 10^3/uL (0-0.05) 02/13/24 07:50
Absolute Neuts (auto) 5.6 10^3/uL (1.4-6.5) 02/13/24 07:50
Absolute Lymphs (auto) 0.9 10^3/uL (1.2-3.4) L 02/13/24 07:50
Absolute Monos (auto) 0.8 10^3/uL (0.1-0.6) H 02/13/24 07:50
Absolute Eos (auto) 0.2 10^3/uL (0-0.7) 02/13/24 07:50
Absolute Basos (auto) 0.0 10^3/uL (0-0.2) 02/13/24 07:50
Immature Gran % 0.5 % (0-0.5) 02/13/24 07:50
Neutrophils % 74.4 % (42.2-75.2) 02/13/24 07:50
Lymphocytes % 12.3 % (20.5-51.1) L 02/13/24 07:50
Monocytes % 10.1 % (1.7-9.3) H 02/13/24 07:50
Eosinophils % 2.3 % (0-6) 02/13/24 07:50
Basophils % 0.4 % (0-2) 02/13/24 07:50
Creatinine 0.6 mg/dL (0.7-1.3) L 02/13/24 07:50
CT Chest 02/13/24: possible mass R lung with pna possibly post-obstructive
PSA 1.3
Vital Signs
Vital Signs
Temp Pulse Resp BP Pulse Ox
98.5 F 68 20 112/73 97
02/13/24 07:02 02/13/24 07:37 02/13/24 07:16 02/13/24 07:37 02/13/24 07:43
--- NOTE | 2024-02-13 15:46 | CON.PUL ---
Consultation
Consultation Request
Date/Time Consultation Requested: 02/13/2024 - 135
Date/Time Consultation Performed: 02/13/2024 - 1543
Requesting Provider: Dr. Busby
Performing Provider: Dr. Mendoza
Reason for Consultation: Abnormal Chest CT with possible lung mass
Medical History
-
Chief Complaint: Abdominal/Groin pain
History of Present Illness:
83-year-old male with a past medical history of severe COPD with bullous emphysema, asthma, CAD s/p stent, hypertension, hypercholesterolemia, paroxysmal A-fib on Eliquis, DM type II and history of stroke who presents with lower abdominal pain/groin
pain, and found to be hypoxic to 84% in triage that improved with DuoNebs. Initially patient had a low-grade fever of 99.4 �F, he was tachycardic to 115, breathing at 32 breaths/min, saturating 91% on room air with BP 131/63. He was initially
sinus tachycardia with PACs. Initial CXR showed RLL pneumonia with a moth-eaten appearance of the left humeral shaft. CT chest confirmed RLL pneumonia with trace parapneumonic effusion, advanced emphysematous changes and irregular thickening of
the proximal left humeral cortex suggestive of neoplastic infiltration. Cardiology was consulted due to A-fib with RVR. Patient has been receiving ceftriaxone + doxycycline. Given concern for left humeral neoplastic infiltration with RLL masslike
consolidation, pulmonary service now consulted for additional recommendations.
When I saw the patient he was in bed in no acute distress on 2 L/min nasal cannula breathing comfortably. He says his shortness of breath is better and he denies a bothersome cough although he does cough up sometimes throughout the day. He
currently denies chest pain, headache, abdominal pain, fevers or chills.
Patient follows with us in the [facility] office with Dr. Aguilera, last office visit on 12/02/2023. Patient has history of COPD with asthma as well as GERD with the EDS. He uses Stiolto + albuterol and receives his inhalers from the [facility]. He also has
postnasal drip and uses Flonase + saline main nasal irrigations. Sleep disordered breathing was discussed with the patient given his fatigue during the day with history of snoring, however the patient says he was tested 2 years ago from the [facility]
and he does not have sleep apnea. Patient was told to follow-up in 6 months with spirometry. His last PFT was on 12/02/2023 showing severe COPD with a significant bronchodilator response with mild restrictive lung defect, with severe gas exchange
capacity defect which was only mild when accounting for alveolar volume involving gas exchange (DLCO: 30%; DLCO/VA: 59%).
PMHx: COPD due to bullous emphysema in the setting of asthma, CAD s/p stent, hypercholesterolemia, hypertension, cardiomyopathy, vertigo, history of SC, GERD, DJD, irritable bowel syndrome, DM type II, history of stroke (January 2023) with residual
left-sided weakness, paroxysmal atrial fibrillation on Eliquis, former tobacco use disorder
PHSx: PCTA X1, tonsillectomy, pleurodesis for recurrent right pneumothorax
Past Medical History
Past Medical History: Other (Above as per HPI)
Past Surgical History: Other (Above as per HPI)
Social History
Tobacco: Former Smoker
Alcohol: None
Drug: None
Employment: Retired
Occupational Exposures: Previously in the [employer]
Family History
Family History: Reviewed & Not Pertinent
Allergies / Home Medications
Allergies
Allergy/AdvReac Type Severity Reaction Status Date / Time
penicillin G Allergy childhood-i Verified 02/09/24 20:43
tchy
Penicillins Allergy Unknown-chi Verified 02/09/24 20:43
ldhood-itcy
Home Medications
�Medication �Instructions �Recorded �Confirmed �Last Taken �Type
omeprazole 40 mg capsule,delayed 40 mg PO DAILY Gastrointestinal 01/15/23 02/09/24 01/14/23 08:00 History
release Issue
rosuvastatin 40 mg tablet (Crestor) 40 mg PO DAILY High Cholesterol 01/15/23 02/09/24 01/13/23 20:00 History
tiotropium 2.5 mcg-olodaterol 2.5 2 puff inhalation DAILY 01/15/23 02/09/24 01/14/23 08:00 History
mcg/actuation mist for inhalation Lung/Breathing Issues
(Stiolto Respimat)
apixaban 5 mg tablet (Eliquis) 5 mg PO BID #0 tabs 01/20/23 02/09/24 Unknown Rx
cyanocobalamin (vitamin B-12) 1,000 mcg PO DAILY #30 tabs 02/09/23 02/09/24 Unknown Rx
1,000 mcg tablet
multivitamin with folic acid 400 1 tab PO DAILY #30 tabs 02/09/23 02/09/24 Unknown Rx
mcg tablet (Tab-A-Zach)
trazodone 100 mg tablet 100 mg PO HS #30 tabs 02/09/23 02/09/24 02/09/24 Rx
Pepcid 20 mg PO DAILY 02/09/24 02/09/24 Unknown History
Toprol XL 25 mg PO DAILY 02/09/24 02/09/24 Unknown History
losartan 25 mg PO DAILY 02/09/24 02/09/24 Unknown History
Review of Systems
-
History Source: Patient
All other systems: Negative unless noted
Vitals / Labs / Diagnostic Testing
Vital Signs
Temp Pulse Resp BP Pulse Ox
98.5 F 68 20 112/73 97
02/13/24 07:02 02/13/24 07:37 02/13/24 07:16 02/13/24 07:37 02/13/24 07:43
Lab Data
02/13/24 07:50
02/13/24 07:50
Microbiology
02/09/24 01:04 Blood/Venous Blood Culture - Preliminary
No Growth in 4 days- Final report to follow
02/08/24 23:39 Blood/Venous Blood Culture - Preliminary
No Growth in 4 days- Final report to follow
Diagnostic Testing:
Physical Exam
-
HEENT: Normocephalic and Anicteric
Cardiovascular: S1/S2 and Peripheral Edema (Negative)
Respiratory: Wheeze (Negative), Rales (Right base), Rhonchi (Negative) and Non-Labored Respirations
GI: Soft, Non Distended, Non Tender and Normal Bowel Sounds
Neurology: Awake and Alert
Skin: Warm and Dry
General: Comfortable, Fever (Negative) and Chills (Negative)
Assessment
-
Assessment: 83-year-old male with a past medical history of severe COPD with bullous emphysema, asthma, CAD s/p stent, hypertension, hypercholesterolemia, paroxysmal A-fib on Eliquis, DM type II and history of stroke who presents with lower
abdominal pain/groin pain, and found to be hypoxic to 84% in triage that improved with DuoNebs. Initially patient had a low-grade fever of 99.4 �F, he was tachycardic to 115, breathing at 32 breaths/min, saturating 91% on room air with BP 131/63.
He was initially sinus tachycardia with PACs. Initial CXR showed RLL pneumonia with a moth-eaten appearance of the left humeral shaft. CT chest confirmed RLL pneumonia with trace parapneumonic effusion, advanced emphysematous changes and irregular
thickening of the proximal left humeral cortex suggestive of neoplastic infiltration. Cardiology was consulted due to A-fib with RVR. Patient has been receiving ceftriaxone + doxycycline. Given concern for left humeral neoplastic infiltration
with RLL masslike consolidation, pulmonary service now consulted for additional recommendations.
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
2022), paroxysmal atrial fibrillation on Eliquis, former tobacco use disorder
Impression:
#CAP involving RLL with trace parapneumonic effusion + posterior LLL
#Severe COPD due to advanced bullous emphysema in the setting of asthma -patient uses Stiolto + albuterol at home
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
#Mild restrictive lung defect
Plan:
- Will treat for community-acquired pneumonia with ceftriaxone x 7 days and he is already s/p 5 days of Doxy
- Follow-up infectious workup with blood cultures, and check sputum cultures as well as urine antigens for Legionella/strep pneumonia
- I personally reviewed the CT chest from 02/13/2024 and I do agree that the pneumonia appears atypical with subpleural tracking along the lateral RLL which could be a loculated pleural effusion with differential including parapneumonic vs malignancy.
As stated above, complete course of antibiotics, and plan to repeat imaging with repeat CT chest without contrast in about 4-6 weeks. If opacities/consolidation does not resolve then we will discuss biopsy. If loculated effusion does not resolve
then depending on size will offer drainage versus other intervention depending on ease of fluid collection
- Maintain SpO2 >88-94% with supplemental O2 as needed
- prn nebulized albuterol, and continue Stridervi and Spiriva while he remains hospitalized
- Incentive spirometer encouraged
- Replete electrolytes with K>4, Mg>2
- Maintain euglycemia with goal BG >100 and <180
- DVT ppx
Pulmonary service will continue to follow along.
Total time spent today was 55 minutes for this encounter. Time includes reviewing laboratory test/imaging results, reviewing pertinent medical records, obtaining and reviewing medical history, performing an appropriate exam, ordering medications,
tests and procedures. Time also includes documentation of this encounter, coordinating patient care and communicating with other healthcare professionals. Total time does not include separately billed tests performed on this date of service.
Data:
CT Chest w/o Contrast 02-13-2024:
1. Patchy/irregular alveolar opacities within the right lower lobe compatible with pneumonia. Trace parapneumonic effusion.
2. Advanced emphysematous disease.
3. Irregular thickening and irregular appearance of the proximal left humeral cortex, again suspicious for possible neoplastic infiltration. As before, this can be further evaluated with MRI or bone scan as indicated.
NM bone scan whole body 02-13-2024:
Subtle, mildly increased radiotracer uptake within the left humerus which corresponds to the area of abnormality seen on prior chest radiograph. Given patient history of stroke and left-sided hemiparesis, findings are most likely related to disuse
osteopenia. Given the low degree of uptake, neoplasia is felt less likely.
Degenerative osteophyte is identified within both shoulders, right hip, and the hands and wrists.
[2024-02-13 15:48] VITALS: BP 131/73
--- NOTE | 2024-02-13 16:59 | W.PN.HOSP.TC ---
Today's Communication/Plan
-
Continue antibiotics
Attempt to wean off oxygen
Increase activity.
Assessment / Plan
Assessment / Plan
Acute hypoxic respiratory failure secondary to CAP
- on antibiotics with ctx and doxy to complete 5day course
WBC 12.1-->9.8-->6.3k
CXR 02/08: There is a new parenchymal airspace opacity within the right lower lobe of the lung, which is likely pneumonia. Advise follow-up to exclude underlying neoplasia.
'Moth-eaten' appearance to the visualized left humeral shaft. 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 Consideration for further
evaluation with nuclear medicine bone scan and/or MRI of the left humerus.
CT scan of the chest confirms large right lower lobe infiltrate with no evidence of mass.
Left humeral lesion seen on the CT scan with following bone scan showed osteoporosis and negative for malignancy.
- covid -, sputum cx pending if able to expectorate
- wean o2 as tolerated
- maintain spo2 >90%
2 L/M NC SaO2 95%
- provide incentive spirometer/acapella
- pt/ot consulted, likely as poor ampac and may need snf on dc
- - allow for early mobilization with oob to chair as much as possible to reduce deconditioning
-Patient with prior history of CVA neurologic sequela. Speech and swallow relation appreciated with no evidence of aspiration.
Sepsis without septic shock likely source pulmonary
-Blood cultures negative to date.
- iv antibiotics covering community-acquired pneumonia.
Asymptomatic bacteriuria
- no treatment at this time
COPD without evidence of acute exacerbation
- continue MDI's
PAFib
- continue bb and ac
Pt went in a.fib with rvr this morning. Dr. Montoya consulted. Now on Diltiazem CD 180 mg and back in NSR
Inguinal hernia
- without evidence of incarceration/strangulation, reducible
- outpatient general surgery follow up
CVA without reported residual deficits
- on eliquis and HI statin
GERD
- continue ppi and [id number]
B12 Def
- continue b12 supplementation
HTN
- hold ARB for now, if becoming hypertensive can resume
DVT ppx
- eliquis bid
Pending: Wean o2, IVAbx follow up culture data, PT/OT
Diet: Regular house/Cholesterol lowering
Code status: Full code
Dispo: GMF
Anticipated Discharge: 24 - 48 hours
Subjective/Interval History
-
Date of Service: February 13, 2024
Objective Data
-
Labs:
Laboratory Results
02/13/24
07:50
WBC 7.5
Hgb 11.8 L
Hct 37.1 L
Plt Count 206
Sodium 137
Potassium 3.6
Chloride 101
Carbon Dioxide 27
BUN 13
Creatinine 0.6 L
Glucose 95
Calcium 8.9
Total Bilirubin 0.5
AST 121 H
ALT 90 H
Alkaline Phosphatase 102
Vital Signs:
Vital Signs
Temp Pulse Resp BP Pulse Ox
97.7 F 85 16 131/73 92
02/13/24 15:48 02/13/24 15:48 02/13/24 15:48 02/13/24 15:48 02/13/24 15:48
I&O
02/12/24 02/13/24 02/14/24
06:59 06:59 06:59
Intake Total 600 / 600 360 / 360
Output Total 1020 / 1020 655 / 655
Balance -420 / -420 -295 / -295
Physical Exam
-
General: Well Developed, Well Nourished and No Apparent Distress
HEENT: Normocephalic, Atraumatic and Moist Mucous Membranes
Respiratory: Wheezes (holoexpiratory wheeze, moving air better 02/11)
Cardiac: Regular Rhythm and S1/S2
GI: Soft, Nontender and Nondistended
Musculoskeletal: No Clubbing, No Cyanosis and No Edema
Neuro: Awake, Alert and Oriented
[2024-02-13] MEDS: CRESTOR 40 MG PO (18:14)
[2024-02-13] MEDS: PEPCID 20 MG PO (20:53)
[2024-02-13] MEDS: DESYREL 100 MG PO (20:53)
[2024-02-13 23:04] VITALS: BP 105/41
[2024-02-14] MEDS: ROCEPHIN 1000 MG IV (00:28)
[2024-02-14] MEDS: STERILE WATER FOR INJECTION 10 ML IV (00:29)
[2024-02-14] MEDS: SPIRIVA RESPIMAT 2.5 MCG 2 PUFF INH (07:14)
[2024-02-14] MEDS: STRIVERDI RESPIMAT 2 PUFF INH (07:15)
[2024-02-14 07:59] VITALS: BP 105/62
[2024-02-14] MEDS: PROTONIX 40 MG PO (09:14)
[2024-02-14] MEDS: ELIQUIS 5 MG PO ×2 (09:14→19:57)
[2024-02-14] MEDS: MUCINEX 600 MG PO ×2 (09:15→19:57)
[2024-02-14] MEDS: TOPROL XL 25 MG PO (09:15)
[2024-02-14] MEDS: CARDIZEM CD 180 MG PO (09:15)
[2024-02-14] MEDS: TESSALON PERLES 100 MG PO ×2 (09:56→20:09)
--- NOTE | 2024-02-14 11:05 | W.PN.PUL3 ---
Today's Communication / Plan
-
Antibiotics
Mucolytics
Maintain SpO2 >88-94%
PT/OT � recommending skilled rehab
Outpatient imaging with repeat CT chest in 4-6 weeks
Pulmonary service will continue to briefly follow along
Assessment
-
Assessment: 83-year-old male with a past medical history of severe COPD with bullous emphysema, asthma, CAD s/p stent, hypertension, hypercholesterolemia, paroxysmal A-fib on Eliquis, DM type II and history of stroke who presents with lower
abdominal pain/groin pain, and found to be hypoxic to 84% in triage that improved with DuoNebs. Initially patient had a low-grade fever of 99.4 �F, he was tachycardic to 115, breathing at 32 breaths/min, saturating 91% on room air with BP 131/63.
He was initially sinus tachycardia with PACs. Initial CXR showed RLL pneumonia with a moth-eaten appearance of the left humeral shaft. CT chest confirmed RLL pneumonia with trace parapneumonic effusion, advanced emphysematous changes and irregular
thickening of the proximal left humeral cortex suggestive of neoplastic infiltration. Cardiology was consulted due to A-fib with RVR. Patient has been receiving ceftriaxone + doxycycline. Given concern for left humeral neoplastic infiltration
with RLL masslike consolidation, pulmonary service now consulted for additional recommendations.
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
2022), paroxysmal atrial fibrillation on Eliquis, former tobacco use disorder
Impression:
#CAP involving RLL with trace parapneumonic effusion + posterior LLL
#Severe COPD due to advanced bullous emphysema in the setting of asthma -patient uses Stiolto + albuterol at home
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
#Mild restrictive lung defect
Plan:
- Will treat for community-acquired pneumonia with ceftriaxone x 7 days and he is already s/p 5 days of Doxy
- Follow-up infectious workup with blood cultures, and check sputum cultures as well as urine antigens for Legionella/strep pneumonia
- I personally reviewed the CT chest from 02/13/2024 and I do agree that the pneumonia appears atypical with subpleural tracking along the lateral RLL which could be a loculated pleural effusion with differential including parapneumonic vs malignancy.
As stated above, complete course of antibiotics, and plan to repeat imaging with repeat CT chest without contrast in about 4-6 weeks. If opacities/consolidation does not resolve then we will discuss biopsy. If loculated effusion does not resolve
then depending on size will offer drainage versus other intervention depending on ease of fluid collection
- Maintain SpO2 >88-94% with supplemental O2 as needed
- prn nebulized albuterol, and continue Stridervi and Spiriva while he remains hospitalized
- Incentive spirometer encouraged
- Replete electrolytes with K>4, Mg>2
- Maintain euglycemia with goal BG >100 and <180
- PT/OT
- DVT ppx
Pulmonary service will continue to follow along.
Total time spent today was 35 minutes for this encounter. Time includes reviewing laboratory test/imaging results, reviewing pertinent medical records, obtaining and reviewing medical history, performing an appropriate exam, ordering medications,
tests and procedures. Time also includes documentation of this encounter, coordinating patient care and communicating with other healthcare professionals. Total time does not include separately billed tests performed on this date of service.
Data:
CT Chest w/o Contrast 02-13-2024:
1. Patchy/irregular alveolar opacities within the right lower lobe compatible with pneumonia. Trace parapneumonic effusion.
2. Advanced emphysematous disease.
3. Irregular thickening and irregular appearance of the proximal left humeral cortex, again suspicious for possible neoplastic infiltration. As before, this can be further evaluated with MRI or bone scan as indicated.
NM bone scan whole body 02-13-2024:
Subtle, mildly increased radiotracer uptake within the left humerus which corresponds to the area of abnormality seen on prior chest radiograph. Given patient history of stroke and left-sided hemiparesis, findings are most likely related to disuse
osteopenia. Given the low degree of uptake, neoplasia is felt less likely.
Degenerative osteophyte is identified within both shoulders, right hip, and the hands and wrists.
Subjective Data
-
Date of Service:
Date of Service: February 14, 2024
Chief Complaint: Pulmonary Follow Up
Subjective:
Patient seen and evaluated today at bedside. He says he feels 'all right.' He is on 2 L/min nasal cannula saturating 96%. Of note he does not wear O2 at home. He feels a little bit better than yesterday, currently denying chest pain, headache,
abdominal pain, fevers or chills.
Review of Systems
General: Other (Negative unless mentioned above)
Objective Data
Data Reviewed
Vital Signs / I&O / Oxygen:
Vital Signs
Temp Pulse Resp BP Pulse Ox
98.3 F 80 18 110/60 97
02/14/24 07:59 02/14/24 09:15 02/14/24 07:59 02/14/24 09:15 02/14/24 07:59
Intake and Output
02/13/24 02/14/24 02/15/24
06:59 06:59 06:59
Intake Total 360 / 360 960 / 960
Output Total 655 / 655 900 / 900
Balance -295 / -295 60 / 60
SaO2 97
Nasal Cannula flow liters per 2
minute
Physical Exam
General: Respiratory Distress (Negative) and Comfortable
HEENT: Normocephalic and Anicteric
Cardiovascular: S1-S2 and Peripheral Edema (Negative)
Respiratory: Wheeze (Negative), Crackles (Right base), Rhonchi (Negative) and Accessory Resp Muscle Use (Negative)
GI: Soft, Non Distended, Non Tender and Normal Bowel Sounds
Neurology: Awake, Alert and Other (Left-sided hemiparesis)
Skin: Warm, Dry and Jaundice (Negative)
Labs/Micro/Reports
Lab Data
02/13/24 07:50
02/13/24 07:50
Microbiology
02/14/24 04:31 Urine Legionella Urinary Antigen - Final
Negative for Legionella pneumophila Serogroup 1 antigen.
A negative result does not rule out the possiblity of
Legionella infection due to other serogroups or species of
Legionella. Clinical correlation is recommended.
02/14/24 04:31 Urine Streptococcus pneumoniae Antigen (M - Final
Negative for Streptococcus pneumoniae antigen.
A negative result does not exclude infection with
Streptococcus pneumoniae. Clinical correlation is
recommended.
02/09/24 01:04 Blood/Venous Blood Culture - Final
No Growth - Final Report
02/08/24 23:39 Blood/Venous Blood Culture - Final
No Growth - Final Report
--- NOTE | 2024-02-14 13:27 | W.PN.ONC ---
Today's Communication / Plan
-
Myeloma studies are pending. 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
Impression
Impression
Pneumonia
Hx tobacco use disorder
Abnormal appearance of L humerus on CXR and CT chest. bone scan consistent with disuse osteopenia
Possible lung mass
Plan
Plan
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
PSA normal.
We will follow up on myeloma studies but based on bone scan reading, low index of suspicion for occult malignancy.
Tessalon Perles ordered PRN cough.
Thank you for consult.
Subjective/Objective
Subjective/Objective
He is feeling reasonably well. He reports no new symptoms. He denies any pains. Examination is unchanged.
Vital Signs:
Vital Signs
Temp Pulse Resp BP Pulse Ox
98.3 F 80 18 110/60 97
02/14/24 07:59 02/14/24 09:15 02/14/24 07:59 02/14/24 09:15 02/14/24 07:59
Lab Results:
Laboratory Data
WBC 7.5 10^3/uL (4.8-10.8) 02/13/24 07:50
Hgb 11.8 g/dL (13.0-18.0) L 02/13/24 07:50
Plt Count 206 10^3/uL (130-400) 02/13/24 07:50
eGFR > 60.00 02/13/24 07:50
[2024-02-14 14:05] VITALS: PULSE 86; O2SAT 96
[2024-02-14 14:24] LABS: Free Kappa Light Chains,Quant 23.16 mg/L (3.30-19.40); Free Lambda Light Chains,Quant 24.37 mg/L (5.71-26.30); Kappa/Lambda Fr Light Ratio 0.95 (0.26-1.65)
[2024-02-14 15:00] VITALS: BP 121/56
--- NOTE | 2024-02-14 18:07 | W.PN.HOSP.TC ---
Today's Communication/Plan
-
Plan is to transition to oral antibiotics on 02/14
Attempt to wean off oxygen
Physical therapy assessment
Discharge planning
Assessment / Plan
Assessment / Plan
Acute hypoxic respiratory failure secondary to CAP
- on antibiotics with ctx and doxy to complete 5day course
WBC 12.1-->9.8-->6.3k
CXR 02/08: There is a new parenchymal airspace opacity within the right lower lobe of the lung, which is likely pneumonia. Advise follow-up to exclude underlying neoplasia.
'Moth-eaten' appearance to the visualized left humeral shaft. 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 Consideration for further
evaluation with nuclear medicine bone scan and/or MRI of the left humerus.
CT scan of the chest confirms large right lower lobe infiltrate with no evidence of mass.
Left humeral lesion seen on the CT scan with following bone scan showed osteoporosis and negative for malignancy.
- covid -, sputum cx pending if able to expectorate
- wean o2 as tolerated
- maintain spo2 >90%
2 L/M NC SaO2 95%
- provide incentive spirometer/acapella
- pt/ot consulted, likely as poor ampac and may need snf on dc
- - allow for early mobilization with oob to chair as much as possible to reduce deconditioning
-Patient with prior history of CVA neurologic sequela. Speech and swallow relation appreciated with no evidence of aspiration.
Sepsis without septic shock likely source pulmonary
-Blood cultures negative to date.
- iv antibiotics covering community-acquired pneumonia.
Asymptomatic bacteriuria
- no treatment at this time
COPD without evidence of acute exacerbation
- continue MDI's
PAFib
- continue bb and ac
Pt went in a.fib with rvr this morning. Dr. Montoya consulted. Now on Diltiazem CD 180 mg and back in NSR
Inguinal hernia
- without evidence of incarceration/strangulation, reducible
- outpatient general surgery follow up
CVA without reported residual deficits
- on eliquis and HI statin
GERD
- continue ppi and [id number]
B12 Def
- continue b12 supplementation
HTN
- hold ARB for now, if becoming hypertensive can resume
DVT ppx
- eliquis bid
Pending: Wean o2, IVAbx follow up culture data, PT/OT
Diet: Regular house/Cholesterol lowering
Code status: Full code
Dispo: [facility]
Anticipated Discharge: 24 - 48 hours
Subjective/Interval History
-
Date of Service: February 14, 2024
Objective Data
-
Vital Signs:
Vital Signs
Temp Pulse Resp BP Pulse Ox
98.4 F 78 18 121/56 96
02/14/24 15:00 02/14/24 15:00 02/14/24 15:00 02/14/24 15:00 02/14/24 15:00
I&O
02/13/24 02/14/24 02/15/24
06:59 06:59 06:59
Intake Total 360 / 360 960 / 960
Output Total 655 / 655 900 / 900
Balance -295 / -295 60 / 60
Physical Exam
-
General: Well Developed and No Apparent Distress
HEENT: Normocephalic, Atraumatic and Moist Mucous Membranes
Respiratory: Clear to Auscultation
Cardiac: Regular Rhythm and S1/S2; Negative Murmur, Rub or Gallop
GI: Soft, Nontender, Nondistended and Normal Bowel Sounds; Negative Organomegaly
Rectal: Deferred by Provider
Musculoskeletal: No Clubbing, No Cyanosis and No Edema
Skin: Negative Rash
Neuro: Nonfocal/Grossly Intact
[2024-02-14] MEDS: CRESTOR 40 MG PO (18:34)
[2024-02-14] MEDS: DESYREL 100 MG PO (22:13)
[2024-02-14] MEDS: PEPCID 20 MG PO (22:13)
[2024-02-14 23:25] VITALS: BP 103/51
[2024-02-15] MEDS: ROCEPHIN 1000 MG IV (02:27)
[2024-02-15] MEDS: STERILE WATER FOR INJECTION 10 ML IV (02:28)
[2024-02-15 07:25] VITALS: BP 133/73
[2024-02-15] MEDS: SPIRIVA RESPIMAT 2.5 MCG 2 PUFF INH (07:43)
[2024-02-15] MEDS: STRIVERDI RESPIMAT 2 PUFF INH (07:43)
[2024-02-15] MEDS: ELIQUIS 5 MG PO (09:01)
[2024-02-15] MEDS: TOPROL XL 25 MG PO (09:01)
[2024-02-15] MEDS: PROTONIX 40 MG PO (09:01)
[2024-02-15] MEDS: MUCINEX 600 MG PO (09:01)
[2024-02-15] MEDS: CARDIZEM CD 180 MG PO (09:02)
[2024-02-15 09:12] LABS: Albumin 2.47 g/dL (3.75-5.01); Alpha 1 Globulin 0.47 g/dL (0.19-0.46); Alpha 2 Globulin 1.05 g/dL (0.48-1.05); SPEP IFE Reflex Not Done; Total Protein-Electrophoresis 5.5 g/dL (6.3-8.2)
--- NOTE | 2024-02-15 12:39 | W.PN.PUL3 ---
Today's Communication / Plan
-
Antibiotics to finish 7 day course of beta-lactam
Mucolytics
Maintain SpO2 >88-94% - pt going home on home O2
PT/OT
Outpatient imaging with repeat CT chest in 4-6 weeks
Patient being prepared for discharge home with PT/OT and home oxygen. He has home caregivers that will also assist him in his ADLs. Pulmonary service will now sign off. We will arrange for patient to follow-up with our office with Dr. Aguilera
upon discharge. Please reconsult if there are any additional questions/concerns, or if patient's respiratory status deteriorates.
Assessment
-
Assessment: 83-year-old male with a past medical history of severe COPD with bullous emphysema, asthma, CAD s/p stent, hypertension, hypercholesterolemia, paroxysmal A-fib on Eliquis, DM type II and history of stroke who presents with lower
abdominal pain/groin pain, and found to be hypoxic to 84% in triage that improved with DuoNebs. Initially patient had a low-grade fever of 99.4 �F, he was tachycardic to 115, breathing at 32 breaths/min, saturating 91% on room air with BP 131/63.
He was initially sinus tachycardia with PACs. Initial CXR showed RLL pneumonia with a moth-eaten appearance of the left humeral shaft. CT chest confirmed RLL pneumonia with trace parapneumonic effusion, advanced emphysematous changes and irregular
thickening of the proximal left humeral cortex suggestive of neoplastic infiltration. Cardiology was consulted due to A-fib with RVR. Patient has been receiving ceftriaxone + doxycycline. Given concern for left humeral neoplastic infiltration
with RLL masslike consolidation, pulmonary service now consulted for additional recommendations.
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
2022), paroxysmal atrial fibrillation on Eliquis, former tobacco use disorder
Impression:
#CAP involving RLL with trace parapneumonic effusion + posterior LLL
#Acute respiratory failure with hypoxia due to above in the setting of severe COPD
#Severe COPD due to advanced bullous emphysema in the setting of asthma -patient uses Stiolto + albuterol at home
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
#Mild restrictive lung defect
Plan:
- Will treat for community-acquired pneumonia with ceftriaxone x 7 days and he is already s/p 5 days of Doxy
- Follow-up infectious workup with blood cultures (NGTD); awaiting sputum culture; urine antigens for Legionella/strep pneumonia both negative
- I personally reviewed the CT chest from 02/13/2024 and I do agree that the pneumonia appears atypical with subpleural tracking along the lateral RLL which could be a loculated pleural effusion with differential including parapneumonic vs malignancy.
As stated above, complete course of antibiotics, and plan to repeat imaging with repeat CT chest without contrast in about 4-6 weeks. If opacities/consolidation does not resolve then we will discuss biopsy. If loculated effusion does not resolve
then depending on size will offer drainage versus other intervention depending on ease of fluid collection
- Maintain SpO2 >88-94% with supplemental O2; ambulatory/exertional pulse oximetry prior to discharge to assess home O2 needs
- prn nebulized albuterol, and continue Striverdi and Spiriva while he remains hospitalized - DC home on Stiolto and albuterol
- Incentive spirometer encouraged
- Replete electrolytes with K>4, Mg>2
- Maintain euglycemia with goal BG >100 and <180
- PT/OT
- DVT ppx
Patient being prepared for discharge home with PT/OT and home oxygen. He has home caregivers that will also assist him in his ADLs. Pulmonary service will now sign off. We will arrange for patient to follow-up with our office with Dr. Aguilera
upon discharge. Thank you for allowing us to be involved in the care of this patient. Please reconsult if there are any additional questions/concerns, or if patient's respiratory status deteriorates.
Total time spent today was 35 minutes for this encounter. Time includes reviewing laboratory test/imaging results, reviewing pertinent medical records, obtaining and reviewing medical history, performing an appropriate exam, ordering medications,
tests and procedures. Time also includes documentation of this encounter, coordinating patient care and communicating with other healthcare professionals. Total time does not include separately billed tests performed on this date of service.
Data:
CT Chest w/o Contrast 02-13-2024:
1. Patchy/irregular alveolar opacities within the right lower lobe compatible with pneumonia. Trace parapneumonic effusion.
2. Advanced emphysematous disease.
3. Irregular thickening and irregular appearance of the proximal left humeral cortex, again suspicious for possible neoplastic infiltration. As before, this can be further evaluated with MRI or bone scan as indicated.
NM bone scan whole body 02-13-2024:
Subtle, mildly increased radiotracer uptake within the left humerus which corresponds to the area of abnormality seen on prior chest radiograph. Given patient history of stroke and left-sided hemiparesis, findings are most likely related to disuse
osteopenia. Given the low degree of uptake, neoplasia is felt less likely.
Degenerative osteophyte is identified within both shoulders, right hip, and the hands and wrists.
Subjective Data
-
Date of Service:
Date of Service: February 15, 2024
Chief Complaint: Pulmonary Follow Up
Subjective:
Patient seen and evaluated today at bedside. No acute events reported from overnight. This morning he was on 1 L/min nasal cannula saturating 95%. He denies chest pain, headache, fevers or chills.
Review of Systems
General: Other (Negative unless mentioned above)
Objective Data
Data Reviewed
Vital Signs / I&O / Oxygen:
Vital Signs
Temp Pulse Resp BP Pulse Ox
97.8 F 85 16 133/73 95
02/15/24 07:25 02/15/24 09:01 02/15/24 07:44 02/15/24 09:01 02/15/24 10:10
Intake and Output
02/14/24 02/15/24 02/16/24
06:59 06:59 06:59
Intake Total 960 / 960 2040 / 2040
Output Total 900 / 900 1050 / 1050
Balance 60 / 60 990 / 990
SaO2 95
Nasal Cannula flow liters per 1
minute
Physical Exam
General: Respiratory Distress (Negative) and Comfortable
HEENT: Normocephalic and Anicteric
Cardiovascular: S1-S2 and Peripheral Edema (Negative)
Respiratory: Wheeze (Negative), Crackles (Right base), Rhonchi (Negative) and Accessory Resp Muscle Use (Negative)
GI: Soft, Non Distended, Non Tender and Normal Bowel Sounds
Neurology: Awake, Alert and Other (Left-sided hemiparesis)
Skin: Warm, Dry and Jaundice (Negative)
Labs/Micro/Reports
Lab Data
02/13/24 07:50
02/13/24 07:50
Microbiology
02/14/24 04:31 Urine Legionella Urinary Antigen - Final
Negative for Legionella pneumophila Serogroup 1 antigen.
A negative result does not rule out the possiblity of
Legionella infection due to other serogroups or species of
Legionella. Clinical correlation is recommended.
02/14/24 04:31 Urine Streptococcus pneumoniae Antigen (M - Final
Negative for Streptococcus pneumoniae antigen.
A negative result does not exclude infection with
Streptococcus pneumoniae. Clinical correlation is
recommended.
02/09/24 01:04 Blood/Venous Blood Culture - Final
No Growth - Final Report
02/08/24 23:39 Blood/Venous Blood Culture - Final
No Growth - Final Report
--- NOTE | 2024-02-15 14:19 | RESPNOTE ---
patient was able to stand up and walk a few steps, patient cannot walk very far currently
[2024-02-15 15:02] VITALS: BP 135/70
[2024-02-15 15:30] VITALS: BMI 22.4
--- NOTE | 2024-02-15 15:49 | W.DS.TRANS ---
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
-
Discharge Instructions:
Discharge Diagnosis/Procedures Pneumonia.
Acute hypoxic respiratory failure
Diet Regular
Others Tests Chest Xray in 4-6 weeks
Instructions:
Stand-Alone Forms:
Changes to Home Medications: Yes
Discharge Medications:
DC Medications w/original date entered in [facility]
omeprazole 40 mg capsule,delayed release 40 mg PO DAILY Gastrointestinal Issue 01/15/23
rosuvastatin 40 mg tablet (Crestor) 40 mg PO DAILY High Cholesterol 01/15/23
tiotropium 2.5 mcg-olodaterol 2.5 mcg/actuation mist for inhalation (Stiolto Respimat) 2 puff inhalation DAILY Lung/Breathing Issues 01/15/23
apixaban 5 mg tablet (Eliquis) 5 mg PO BID #0 tabs 01/20/23
cyanocobalamin (vitamin B-12) 1,000 mcg tablet 1,000 mcg PO DAILY #30 tabs 02/09/23
multivitamin with folic acid 400 mcg tablet (Tab-A-Zach) 1 tab PO DAILY #30 tabs 02/09/23
trazodone 100 mg tablet 100 mg PO HS #30 tabs 02/09/23
Pepcid 20 mg PO DAILY 02/09/24
Toprol XL 25 mg PO DAILY 02/09/24
losartan 25 mg PO DAILY 02/09/24
cefuroxime axetil 500 mg tablet 500 mg PO BID #10 tabs 02/15/24
diltiazem HCl 180 mg capsule,extended release 24 hr 180 mg PO DAILY #30 caps 02/15/24
guaifenesin 600 mg tablet, extended release 12 hr 600 mg PO Q12 #30 tabs 02/15/24
olodaterol 2.5 mcg/actuation mist for inhalation (Striverdi Respimat) 2 puff inhalation R DAILY #4 grams 02/15/24
Home Medication Changes
Striverdi, Cardizem, Antibiotics
O2 initiated
Pending Results: No
--- NOTE | 2024-02-15 16:08 | CM ---
CM met with Rodo to discuss home O2 needs. Order sent to [facility] and portable was delivered today/Rodo is to call [facility] when he gets home so they can deliver the rest of the equipment..
Discussed with Dr. Bruno; Rodo will be discharged to home today.
Rodo is agreeable to [facility] and referral made for start of services. He requests PT and OT, does not think he needs nursing services. Confirmed with VN that this can be done.
Plan: Discharge to home with VN for PT and OT only. In home caregivers will also resume when he returns home.
== END 2024-02-15 17:45 | disposition home health service (06) | DRG 871 ==
LOC: 4 EAST ACU 02:39
PROVIDERS: Emergency Medicine; Internal Medicine; Nurse Practitioner Family; ADMITTING PHYSICIAN Student in an Organized Health Care Education/Training Program; ATTENDING PHYSICIAN Internal Medicine; CONSULT PHYSICIAN Internal Medicine Cardiovascular Disease; CONSULT PHYSICIAN Internal Medicine Critical Care Medicine; CONSULT PHYSICIAN Internal Medicine Hematology & Oncology; EMERGENCY PHYSICIAN Emergency Medicine; FAMILY PHYSICIAN Internal Medicine
DX: A41.9 Sepsis, unspecified organism (principal); J18.9 Pneumonia, unspecified organism; J96.01 Acute respiratory failure with hypoxia; J44.0 Chronic obstructive pulmonary disease with (acute) lower respiratory infection; I69.354 Hemiplegia and hemiparesis following cerebral infarction affecting left non-dominant side; R64 Cachexia; R82.71 Bacteriuria; I48.0 Paroxysmal atrial fibrillation; I10 Essential (primary) hypertension; J43.9 Emphysema, unspecified; E78.00 Pure hypercholesterolemia, unspecified; I25.10 Atherosclerotic heart disease of native coronary artery without angina pectoris; M81.0 Age-related osteoporosis without current pathological fracture; R91.8 Other nonspecific abnormal finding of lung field; K40.90 Unilateral inguinal hernia, without obstruction or gangrene, not specified as recurrent; E53.8 Deficiency of other specified B group vitamins; Z74.01 Bed confinement status; Z99.3 Dependence on wheelchair; Z11.52 Encounter for screening for COVID-19; Z79.01 Long term (current) use of anticoagulants; Z87.891 Personal history of nicotine dependence; I25.2 Old myocardial infarction; Z95.5 Presence of coronary angioplasty implant and graft; Z68.22 Body mass index [BMI] 22.0-22.9, adult
CPT/HCPCS: 71046; 71250; 78306; 80048; 80053; 81003; 81015; 83521; 83605; 83690; 83735; 84155; 84165; 85025; 85652; 87040; 87086; 87449; 87811; 87899; 92610; 93005; 93306; 94640; 94760; 96361; 96374; 97162; 97166; 97530; 97535; 99285; A9503; G0103

== ENCOUNTER → 2024-03-14 10:35 | Outpatient (REF) | payer MEDICARE, SELFPAY | LOC: RAD 10:35 | PROVIDERS: ATTENDING PHYSICIAN Internal Medicine | DX: J18.9 Pneumonia, unspecified organism (principal) | CPT/HCPCS: 71046 ==

== ENCOUNTER → 2024-04-02 11:24 | Outpatient (REF) | payer MEDICARE, SELFPAY | LOC: HWRAD 11:24 | PROVIDERS: ATTENDING PHYSICIAN Nurse Practitioner Family; FAMILY PHYSICIAN Internal Medicine | DX: R93.89 Abnormal findings on diagnostic imaging of other specified body structures (principal) | CPT/HCPCS: 71250 ==

== ENCOUNTER → 2024-04-21 10:20 | Outpatient (REF) | payer MEDICARE, SELFPAY ==
[2024-04-21 11:37] LABS: Hematocrit 43.1 % (39.0-52.0); Hemoglobin 13.8 g/dL (13.0-18.0); Mean Corpuscular Hgb 25.8 pg (27.0-31.0); Mean Corpuscular Volume 80.6 fL (80.0-94.0); Mean Platelet Volume 10.6 fL (7.4-10.4); Platelet Count 193 10^3/uL (130-400); Red Blood Cell Count 5.35 10^6/uL (4.70-6.10); Red Cell Dist. Width 15.3 % (11.5-14.5); White Blood Cell Count 4.6 10^3/uL (4.8-10.8)
[2024-04-21 12:03] LABS: ALT (SGPT) 14 U/L (0-50); AST (SGOT) 25 U/L (17-59); Albumin 4.3 g/dl (3.5-5.0); Alkaline Phosphatase 82 U/L (38-126); Blood Urea Nitrogen 17 mg/dl (9-20); Calcium 9.7 mg/dl (8.4-10.2); Carbon Dioxide 28 mmol/L (22-30); Chloride 100 mmol/L (98-107); Glucose 93 mg/dl (70-99); Potassium 4.4 mmol/L (3.5-5.1); Sodium 141 mmol/L (135-145); Total Bilirubin 0.8 mg/dl (0.2-1.3); Total Protein 6.9 g/dl (6.3-8.2); eGFR > 60.00
[2024-04-21 12:05] LABS: Glycohemoglobin (HgbA1c) 5.5 % (4.0-5.6)
== END ==
LOC: REG 10:20
PROVIDERS: ATTENDING PHYSICIAN Surgery; FAMILY PHYSICIAN Internal Medicine
DX: K40.90 Unilateral inguinal hernia, without obstruction or gangrene, not specified as recurrent (principal)
CPT/HCPCS: 36415; 80053; 83036; 85027; 86850; 86900; 86901; 87070

== ENCOUNTER 2024-04-27 06:22 | Day surgery (SDC) | payer MEDICARE, SELFPAY ==
[2024-04-27] VITALS (8 sets, daily range): BP systolic 105–143; BP diastolic 61–79; BMI 24.6
--- NOTE | 2024-04-27 07:21 | HP.FOC2 ---
Focused History & Physical
Chief Complaint
HPI:
Chief Complaint: Left inguinal hernia
HPI / Indication for Planned Procedure: Patient is an 83-year-old male who I been following as an outpatient secondary to a known left inguinal hernia. We had initially chosen to follow his hernia expectantly however it is quite bothersome and an
annoyance for him therefore he strongly desires to have his left inguinal hernia fixed understanding he is at increased medical risk due to his multiple comorbidities. Underwent preoperative pulmonary and cardiovascular evaluations and presents
today for scheduled operative correction.
Relevant Past Medical History: Other (COPD, CAD with history of stent, hypertension, hypercholesterolemia, cardiomyopathy, vertigo, history of [place], GERD, stroke 01/2023 with resultant left hemiparesis and ambulatory dysfunction, history of pneumonias)
Relevant Social History: Negative
Relevant Family History: Negative
Relevant Past Surgical History: Positive for (Cardiac catheterization with stent, pleurodesis, tonsillectomy)
Review of Systems
Review of Pertinent Systems: All Systems Negative
Medication
See Medication form for detailed medications: Yes
Medication List (including Herbals & OTC):
omeprazole 40 mg capsule,delayed release 40 mg PO DAILY Gastrointestinal Issue 01/15/23
rosuvastatin 40 mg tablet (Crestor) 40 mg PO DAILY High Cholesterol 01/15/23
tiotropium 2.5 mcg-olodaterol 2.5 mcg/actuation mist for inhalation (Stiolto Respimat) 2 puff inhalation DAILY Lung/Breathing Issues 01/15/23
apixaban 5 mg tablet (Eliquis) 5 mg PO BID #0 tabs 01/20/23
cyanocobalamin (vitamin B-12) 1,000 mcg tablet 1,000 mcg PO DAILY #30 tabs 02/09/23
multivitamin with folic acid 400 mcg tablet (Tab-A-Zach) 1 tab PO DAILY #30 tabs 02/09/23
trazodone 100 mg tablet 100 mg PO HS #30 tabs 02/09/23
Pepcid 20 mg PO DAILY 02/09/24
Toprol XL 25 mg PO DAILY 02/09/24
losartan 25 mg PO DAILY 02/09/24
albuterol sulfate 90 mcg/actuation aerosol inhaler 1 inh inhalation PRN PRN shortness of breath 04/23/24
Medications Reviewed: Yes
Allergies and Reactions
Patient has Allergies: Yes
Noted Allergies and Reactions:
Allergy/AdvReac Type Severity Reaction Status Date / Time
penicillin G Allergy childhood-i Verified 04/23/24 11:21
tchy
Penicillins Allergy Unknown-chi Verified 04/23/24 11:21
ldhood-itcy
Pertinent Physical Exam
All Other Systems: Negative
Head/Neck: Normal
Lungs: Normal
Heart: Normal
Abdomen: Other (Reducible left inguinal hernia)
Extremities: Normal
Neurological: Other (Left hemiparesis)
Diagnosis / Assessment
83-year-old male presenting for scheduled operative correction symptomatic left inguinal hernia
Plan / Procedure
Open left inguinal hernia repair with mesh
Anesthesia/Sedation to be done by Anesthesia Provider: Yes
[2024-04-27] MEDS: NORMOSOL-R/PLASMALYTE-A 1000 IV (11:43)
[2024-04-27] MEDS: VANCOCIN 200 IV (11:44)
[2024-04-27] MEDS: TYLENOL 1000 MG PO (11:44)
[2024-04-27 11:46] LABS: Glucose - Point of Care 91 mg/dl (70-99)
--- NOTE | 2024-04-27 11:59 | W.SUR.PREOP ---
Pre-Operative Surgical Note
-
I have examined this patient prior to the performance of the scheduled procedure.
The patient's condition is unchanged from the time of the current History and
Physical and the patient is able to undergo the scheduled procedure.
--- NOTE | 2024-04-27 14:17 | W.IMMPOSTOP ---
Addendum entered and electronically signed by Sam Irving MD 04/27/24 14:28:
#[id number]
Original Note:
Surgical Immed Post Op Note
-
Primary Surgeon: Maria Fernanda
Assisting Surgeon: Cezar YUEN-student
Pre-op Diagnosis: Left inguinal hernia
Post-op Diagnosis: Left inguinal hernia; indirect + lipoma
Procedure Performed: Open left inguinal herniorrhaphy with mesh; 7.5 x 15 soft mesh
Anesthesia Type: MAC +0.25% Marcaine/1% lidocaine
Specimen / Cultures: None
Estimated Blood Loss: 8 mL
Complications: None immediate
Operative Findings: Left indirect inguinal hernia with sizable hernia sac but no incarcerated contents. Hernia sac ligated at neck with 2-0 Vicryl suture ligature. Modest lipoma of cord structures excised. [place]lay tension-free Effie mesh
repair -7.5 cm x 15 cm Bard soft mesh.
== END 2024-04-27 16:25 | disposition home or self-care (01) ==
LOC: SDS 06:22
PROVIDERS: ATTENDING PHYSICIAN Surgery; FAMILY PHYSICIAN Internal Medicine
DX: K40.90 Unilateral inguinal hernia, without obstruction or gangrene, not specified as recurrent (principal)
CPT/HCPCS: 49505; 82962; 86900; 86901; 93005

== ENCOUNTER → 2024-07-06 11:02 | Outpatient (REF) | payer MEDICARE, SELFPAY | LOC: HWRAD 11:02 | PROVIDERS: ATTENDING PHYSICIAN Internal Medicine Critical Care Medicine; FAMILY PHYSICIAN Internal Medicine | DX: R91.8 Other nonspecific abnormal finding of lung field (principal) | CPT/HCPCS: 71250 ==

== ENCOUNTER → 2024-09-21 10:49 | Outpatient (REF) | payer MEDICARE, SELFPAY ==
[2024-09-21 12:13] LABS: % Basophils 0.8 % (0-2); % Eosinophils 3.2 % (0-6); % Immature Granulocytes 0.2 % (0-0.5); % Monocytes 8.3 % (1.7-9.3); % Neutrophils 62.5 % (42.2-75.2); Absolute Eosinophils 0.2 10^3/uL (0-0.7); Absolute Lymphocytes 1.3 10^3/uL (1.2-3.4); Absolute Monocytes 0.4 10^3/uL (0.1-0.6); Absolute Neutrophils 3.3 10^3/uL (1.4-6.5); Hematocrit 43.3 % (39.0-52.0); Hemoglobin 13.9 g/dL (13.0-18.0); Mean Corp Hgb Conc. 32.1 g/dL (33.0-37.0); Mean Corpuscular Hgb 25.7 pg (27.0-31.0); Mean Platelet Volume 10.3 fL (7.4-10.4); Nucleated Red Blood Cells % 0 % (-); Platelet Count 172 10^3/uL (130-400); Red Blood Cell Count 5.41 10^6/uL (4.70-6.10); Red Cell Dist. Width 14.1 % (11.5-14.5); White Blood Cell Count 5.3 10^3/uL (4.8-10.8)
[2024-09-21 12:43] LABS: ALT (SGPT) 16 U/L (0-50); AST (SGOT) 24 U/L (17-59); Albumin 4.2 g/dl (3.5-5.0); Alkaline Phosphatase 83 U/L (38-126); Blood Urea Nitrogen 15 mg/dl (9-20); Calcium 9.4 mg/dl (8.4-10.2); Carbon Dioxide 30 mmol/L (22-30); Chloride 101 mmol/L (98-107); Glucose 92 mg/dl (70-99); Potassium 4.3 mmol/L (3.5-5.1); Sodium 139 mmol/L (135-145); Total Bilirubin 0.9 mg/dl (0.2-1.3); Total Protein 6.7 g/dl (6.3-8.2); eGFR > 60.00
[2024-09-21 13:27] LABS: Glycohemoglobin (HgbA1c) 5.7 % (4.0-5.6)
== END ==
LOC: HWLAB 10:49
PROVIDERS: ATTENDING PHYSICIAN Internal Medicine
DX: E11.69 Type 2 diabetes mellitus with other specified complication (principal); I10 Essential (primary) hypertension; Z86.73 Personal history of transient ischemic attack (TIA), and cerebral infarction without residual deficits; R63.4 Abnormal weight loss
CPT/HCPCS: 36415; 80053; 83036; 84443; 85025

== ENCOUNTER → 2025-04-10 10:32 | Outpatient (REF) | payer MEDICARE, SELFPAY ==
[2025-04-10 12:56] LABS: Hematocrit 44.6 % (39.0-52.0); Hemoglobin 14.2 g/dL (13.0-18.0); Mean Corp Hgb Conc. 31.8 g/dL (33.0-37.0); Mean Corpuscular Volume 80.8 fL (80.0-94.0); Nucleated Red Blood Cells % 0 % (-); Platelet Count 178 10^3/uL (130-400); Red Cell Dist. Width 14.0 % (11.5-14.5)
[2025-04-10 13:09] LABS: ALT (SGPT) 14 U/L (0-50); AST (SGOT) 20 U/L (17-59); Albumin 4.2 g/dl (3.5-5.0); Alkaline Phosphatase 69 U/L (38-126); Blood Urea Nitrogen 14 mg/dl (9-20); Calcium 9.4 mg/dl (8.4-10.2); Carbon Dioxide 31 mmol/L (22-30); Chloride 103 mmol/L (98-107); Glucose 92 mg/dl (70-99); HDL Cholesterol 46 mg/dl; LDL Cholesterol, Calculated 58 mg/dl; Potassium 4.6 mmol/L (3.5-5.1); Sodium 139 mmol/L (135-145); Total Protein 7.0 g/dl (6.3-8.2); Very Low Density Lipoprotein 18 mg/dl (0-30); eGFR > 60.00
[2025-04-10 14:06] LABS: Glycohemoglobin (HgbA1c) 5.8 % (4.0-5.6)
== END ==
LOC: HWLAB 10:32
PROVIDERS: ATTENDING PHYSICIAN Internal Medicine
DX: E11.9 Type 2 diabetes mellitus without complications (principal); I10 Essential (primary) hypertension; I25.10 Atherosclerotic heart disease of native coronary artery without angina pectoris; I63.311 Cerebral infarction due to thrombosis of right middle cerebral artery
CPT/HCPCS: 36415; 80053; 80061; 83036; 85025